=== PATIENT | male | born 1970 | race Caucasian/White ===

== ENCOUNTER 2017-03-14 17:11 | Observation (INO) | payer MEDICARE, OTHER ==
[~2017-03-14] VITALS: Ht 190.5 cm; Wt 109.0 kg
[~2017-03-14 17:11] MED LIST: ABILIF5PT PO; ADAL40PE4 SQ; BUPR8TAB7 SL; FLUO-202 PO; LEVO75TA73 PO; MODA200T6 PO; OMEP-137 PO; OXYC-854 PO; PER PO; POTA20TA94 PO; PRAZ1CAP26 PO; PRED20TA6 PO; PROM-110 PO; RIZA10TA15 PO; RIZA5TAB30 PO; TEST200K; TEST200K IM; TOPI200T61 PO; TRAM-420 PO; TRAZ-156 PO; VENL150C61 PO; VENL75CA58 PO; VENL75TA98 PO; [UNRECOGNIZED DRUG - OTHER] PO
--- NOTE | 2017-03-14 17:25 | ER Report ---
History and Physical Time Seen By MD: 17:24 Hx. of Stated Complaint: PATIENT IS HAVING A CHROHNS FLAREUP HPI/ROS 47-year-old complains of left upper quadrant abdominal pain 48 hours has a history of Crohn's on Humira. previos h/o incisional hernia x 2 Allergies: Coded Allergies: No Known Drug Allergies (Unverified , 12/14/16) Home Meds Active Scripts Potassium Chloride (POTASSIUM CHLORIDE) 20 Meq Tab.er.prt, 20 MEQ PO TIDCF, #90 TAB 1 Refill Prov:TRACEY DEL ANGEL MD 05/26/16 Reported Medications Venlafaxine Hcl (EFFEXOR XR) 75 Mg Cap.er.24h, 75 MG PO QHS 05/24/16 Testosterone Cypionate (Testone Cik) 200 Mg/1 Ml Kit, QWK 12/30/15 Aripiprazole (ABILIFY) 5 Mg Tablet, 10 MG PO QHS, TAB 12/30/15 Levothyroxine Sodium (LEVOTHYROXINE SODIUM) 75 Mcg Tablet, 75 MCG PO QDAY, TAB 12/26/15 Modafinil (MODAFINIL) 200 Mg Tablet, 200 MG PO QDAY 12/02/14 Topiramate (TOPIRAMATE) 200 Mg Tablet, 200 MG PO QHS 12/02/14 Buprenorphine Hcl (BUPRENORPHINE HCL) 8 Mg Tab.subl, 3 TAB SL QDAY 12/02/14 Omeprazole (OMEPRAZOLE) 20 Mg Tablet.dr, 20 MG PO PRN, TAB 12/02/14 Prazosin Hcl (PRAZOSIN HCL) 1 Mg Capsule, 5 MG PO QHS, CAPSULE 12/02/14 Past Medical/Surgical History chrohns disease , appy, altagracia Reviewed Nurses Notes: Yes Old Medical Records Reviewed: Yes Hx Smoking: No (chewing tobacco) Smoking Status: Former Smoker Exposure to Second Hand Smoke?: No Hx Substance Use Disorder: No (RECOVERING PERCOCET) Hx Alcohol Use: No Family History of: HTN Constitutional Vital Sign - Last 24 Hours 03/14/17 03/14/17 03/14/17 03/14/17 17:21 17:21 17:41 17:46 Temp 99.1 Pulse 96 78 79 Resp 20 B/P (MAP) 140/95 140/95 (110) Pulse Ox 98 97 96 O2 Delivery Room Air 03/14/17 03/14/17 03/14/17 03/14/17 19:16 19:30 19:35 20:00 Pulse 77 78 B/P (MAP) 121/76 (91) 123/109 (114) 127/84 (98) Pulse Ox 92 91 03/14/17 03/14/17 03/14/17 20:05 20:33 20:35 Pulse 82 68 B/P (MAP) 138/91 (107) Pulse Ox 92 95 Physical Exam 47-year-old male alert and oriented moderate distress skin is pale warm and dry HEENT has normocephalic/atraumatic tympanic membranes are non-reddened throat is non-reddened mucous membranes are moist neck is supple no JVD heart rate regular no murmurs rubs and gallops lungs clear to auscultation abdomen is tender left upper quadrant mass noted left upper quadrant bowel sounds hyperactive 4 quadrants moves all extremities no peripheral edema Medical Decision Making Data Points Result Diagram: 03/14/17 1824 03/14/17 1824 Laboratory Hematology Test 03/14/17 18:24 03/14/17 20:31 Red Blood Count 5.22 M/uL (4.00-5.60) Mean Corpuscular Volume 85.9 fL (80.0-96.0) Mean Corpuscular Hemoglobin 29.7 pg (26.0-33.0) Mean Corpuscular Hemoglobin Concent 34.6 g/dL (32.0-36.0) Red Cell Distribution Width 12.9 % (11.5-14.5) Mean Platelet Volume 8.4 fL (7.2-11.1) Neutrophils (%) (Auto) 54.3 % (39.4-72.5) Lymphocytes (%) (Auto) 34.9 % (17.6-49.6) Monocytes (%) (Auto) 6.6 % (4.1-12.4) Eosinophils (%) (Auto) 3.4 % (0.4-6.7) Basophils (%) (Auto) 0.8 % (0.3-1.4) Nucleated RBC Relative Count (auto) 0.1 /100WBC Neutrophils # (Auto) 4.4 K/uL (2.0-7.4) Lymphocytes # (Auto) 2.8 K/uL (1.3-3.6) Monocytes # (Auto) 0.5 K/uL (0.3-1.0) Eosinophils # (Auto) 0.3 K/uL (0.0-0.5) Basophils # (Auto) 0.1 K/uL (0.0-0.1) Nucleated RBC Absolute Count (auto) 0.01 K/uL Prothrombin Time 14.0 seconds (12.0-14.4) Prothromb Time International Ratio 1.07 Activated Partial Thromboplast Time 28 seconds (23-35) Sodium Level 143 mmol/L (137-145) Potassium Level 3.3 mmol/L (3.5-5.0) Chloride Level 106 mmol/L (98-107) Carbon Dioxide Level 23 mmol/L (22-30) Blood Urea Nitrogen 11 mg/dl (9-21) Creatinine 1.40 mg/dl (0.66-1.25) Glomerular Filtration Rate Calc 54.3 Random Glucose 88 mg/dl (75-110) Lactate 1.8 mmol/L (0.7-2.1) Calcium Level 8.9 mg/dl (8.4-10.2) Total Bilirubin 0.5 mg/dl (0.2-1.3) Aspartate Amino Transf (AST/SGOT) 23 U/L (0-35) Alanine Aminotransferase (ALT/SGPT) 32 U/L (0-56) Alkaline Phosphatase 78 U/L (0-126) Total Protein 7.5 gm/dl (6.3-8.2) Albumin 4.0 g/dl (3.5-5.0) Amylase Level 103 U/L (0-110) Lipase 98 U/L (23-300) Urine Color Yellow Urine Clarity Clear Urine pH 5.0 pH (4.8-9.5) Urine Specific [place] 1.057 Urine Protein Negative mg/dL (NEGATIVE) Urine Glucose (UA) Negative mg/dL (NEGATIVE) Urine Ketones Negative mg/dL (NEGATIVE) Urine Blood Negative (NEGATIVE) Urine Nitrite Negative (NEGATIVE) Urine Bilirubin Negative (NEGATIVE) Urine Urobilinogen Negative mg/dL (0.2-1.9) Urine Leukocyte Esterase Negative (NEGATIVE) Urine RBC None /HPF (0-2/HPF) Urine WBC 1 /HPF (0-5/HPF) Urine Squamous Epithelial Cells None /LPF (</=FEW) Urine Bacteria Negative /HPF (NONE-FEW) Urine Mucus None /HPF (NONE-FEW) Chemistry Test 03/14/17 18:24 03/14/17 20:31 White Blood Count 8.1 k/uL (4.5-11.0) Red Blood Count 5.22 M/uL (4.00-5.60) Hemoglobin 15.5 g/dL (14.0-18.0) Hematocrit 44.8 % (42.0-52.0) Mean Corpuscular Volume 85.9 fL (80.0-96.0) Mean Corpuscular Hemoglobin 29.7 pg (26.0-33.0) Mean Corpuscular Hemoglobin Concent 34.6 g/dL (32.0-36.0) Red Cell Distribution Width 12.9 % (11.5-14.5) Platelet Count 144 K/uL (150-450) Mean Platelet Volume 8.4 fL (7.2-11.1) Neutrophils (%) (Auto) 54.3 % (39.4-72.5) Lymphocytes (%) (Auto) 34.9 % (17.6-49.6) Monocytes (%) (Auto) 6.6 % (4.1-12.4) Eosinophils (%) (Auto) 3.4 % (0.4-6.7) Basophils (%) (Auto) 0.8 % (0.3-1.4) Nucleated RBC Relative Count (auto) 0.1 /100WBC Neutrophils # (Auto) 4.4 K/uL (2.0-7.4) Lymphocytes # (Auto) 2.8 K/uL (1.3-3.6) Monocytes # (Auto) 0.5 K/uL (0.3-1.0) Eosinophils # (Auto) 0.3 K/uL (0.0-0.5) Basophils # (Auto) 0.1 K/uL (0.0-0.1) Nucleated RBC Absolute Count (auto) 0.01 K/uL Prothrombin Time 14.0 seconds (12.0-14.4) Prothromb Time International Ratio 1.07 Activated Partial Thromboplast Time 28 seconds (23-35) Glomerular Filtration Rate Calc 54.3 Lactate 1.8 mmol/L (0.7-2.1) Calcium Level 8.9 mg/dl (8.4-10.2) Total Bilirubin 0.5 mg/dl (0.2-1.3) Aspartate Amino Transf (AST/SGOT) 23 U/L (0-35) Alanine Aminotransferase (ALT/SGPT) 32 U/L (0-56) Alkaline Phosphatase 78 U/L (0-126) Total Protein 7.5 gm/dl (6.3-8.2) Albumin 4.0 g/dl (3.5-5.0) Amylase Level 103 U/L (0-110) Lipase 98 U/L (23-300) Urine Color Yellow Urine Clarity Clear Urine pH 5.0 pH (4.8-9.5) Urine Specific [place] 1.057 Urine Protein Negative mg/dL (NEGATIVE) Urine Glucose (UA) Negative mg/dL (NEGATIVE) Urine Ketones Negative mg/dL (NEGATIVE) Urine Blood Negative (NEGATIVE) Urine Nitrite Negative (NEGATIVE) Urine Bilirubin Negative (NEGATIVE) Urine Urobilinogen Negative mg/dL (0.2-1.9) Urine Leukocyte Esterase Negative (NEGATIVE) Urine RBC None /HPF (0-2/HPF) Urine WBC 1 /HPF (0-5/HPF) Urine Squamous Epithelial Cells None /LPF (</=FEW) Urine Bacteria Negative /HPF (NONE-FEW) Urine Mucus None /HPF (NONE-FEW) Coagulation Test 03/14/17 18:24 Prothrombin Time 14.0 seconds Prothromb Time International Ratio 1.07 Activated Partial Thromboplast Time 28 seconds Urinalysis Test 03/14/17 20:31 Urine Color Yellow Urine Clarity Clear Urine pH 5.0 pH (4.8-9.5) Urine Specific [place] 1.057 Urine Protein Negative mg/dL (NEGATIVE) Urine Glucose (UA) Negative mg/dL (NEGATIVE) Urine Ketones Negative mg/dL (NEGATIVE) Urine Blood Negative (NEGATIVE) Urine Nitrite Negative (NEGATIVE) Urine Bilirubin Negative (NEGATIVE) Urine Urobilinogen Negative mg/dL (0.2-1.9) Urine Leukocyte Esterase Negative (NEGATIVE) Urine RBC None /HPF (0-2/HPF) Urine WBC 1 /HPF (0-5/HPF) Urine Squamous Epithelial Cells None /LPF (</=FEW) Urine Bacteria Negative /HPF (NONE-FEW) Urine Mucus None /HPF (NONE-FEW) ED Course/Re-evaluation Clinical Indication for ER IV: Hydration ED Course Discussed patient with Dr. walker he will come and see the patient in emergency room. Given normal saline at 125 mL an hour that normal 50 mics 3 doses and Zofran 4 mg IV for nausea promethazine 12.5 mg IV for nausea Re-evaluation Patient last ate or drank at 10 AM had pretzels at that time has been seen by surgery and anesthesia emergency room will be taken for emergent surgery Decision to Disposition Date: Mar 14, 2017 Decision to Disposition Time: 21:24 Depart Departure Latest Vital Signs Vital Signs Date Time Temp Pulse Resp B/P (MAP) Pulse Ox O2 Delivery O2 Flow Rate FiO2 03/14/17 20:35 68 95 03/14/17 20:33 138/91 (107) 03/14/17 17:21 99.1 20 Room Air Impression: Primary Impression: Strangulated incisional hernia Condition: Condition Unchanged Disposition: ADMIT FROM ER TO OR Referrals: CHRISTOPHER THAPA MD (PCP) NOEMI LAURENT Mar 14, 2017 17:25
[2017-03-14] MEDS ORDERED: NS(*) 0.9% 1000 ML BAG 1,000 ML IV ONE (17:28)
[2017-03-14] MEDS ORDERED: ONDANSETRON 4 MG/2 ML VIAL IVP ONE (17:30)
[2017-03-14] MEDS ORDERED: fentaNYL CITR 100 MCG/2 ML AMP IVP ONE ×2 (17:30→20:15)
[2017-03-14] MEDS ORDERED: PANTOPRAZOLE SOD 40 MG IV VIAL IVP ONE (17:30)
[2017-03-14 18:34] LABS: PLATELET COUNT, AUTOMATED 144 K/uL (150-450)
[2017-03-14 18:45] LABS: INR 1.07
[2017-03-14] MEDS ORDERED: IOPAMIDOL 76% 100 ML INFUS BTL 100 ML ONE (19:04)
[2017-03-14] MEDS ORDERED: NS 0.9% 20 ML SDV 60 ML ONE (19:05)
[2017-03-14] MEDS ORDERED: PROMETHAZINE 25 MG/ML 1 ML AMP IVP ONE (19:20)
[2017-03-14] MEDS ORDERED: fentaNYL CITR 100 MCG/2 ML AMP ONE ×4 (20:04→23:26)
--- NOTE | 2017-03-14 20:08 | RADIOLOGY IMAGING REPORT ---
[place] [facility] [place] NAME: Brady Farr : 1970 MR: [id number] V: [id number] EXAM DATE: ORDERING PHYSICIAN: NOEMI LAURENT TECHNOLOGIST: Location: [facility] Patient: Brady Farr : 1970 Visit/Account:[id number] Date of Sevice: 03/14/2017 Study: CT scan of the abdomen and pelvis with intravenous contrast Indication: Abdominal pain Comparison study: April 05, 2016 Contrast used: 100 mL Isovue-370 Technique: Multiple axial images were obtained through the abdomen and pelvis following intravenous a dministration of iodinated contrast. Coronal and sagittal two-dimensional reconstructions were made f rom the original data set. One of the following dose optimization techniques was utilized in the performance of this exam: Autom ated exposure control; adjustment of the mA and/or kV according to the patient's size; or use of an i terative reconstruction technique. Specific details can be referenced in the facility's radiology C T exam operational policy. Findings: The patient is status post surgical repair of an anterior abdominal wall hernia. There is a loop of small bowel present within the anterior left abdominal wall. This is a new finding as compar ed to the previous study. There are several distended loops of small bowel present. This finding is m ost consistent with a partially strangulated loop of small bowel trapped within an anterior abdominal wall hernia. Lung bases: Unremarkable Liver: Liver is of low density, consistent with fatty infiltration. This is unchanged. Spleen: Unremarkable Gallbladder: Surgically absent Stomach: Unremarkable Small bowel: The distal small bowel is nondilated. The proximal small bowel is dilated there appears to be a partially strangulated loop of small bowel trapped within an anterior left abdominal wall her devi. Large bowel: The large bowel is unremarkable in appearance. Pancreas: Unremarkable Adrenal glands: Unremarkable Kidneys: There is a 7 mm stone present within the right kidney collecting system. This is nonobstruct ing. This is increased in size as compared to the previous study. Retroperitoneum: Unremarkable Pelvis: Unremarkable Bony structures: Unremarkable IMPRESSION: Partial small bowel obstruction. The transition point appears to be a partially strangula mary jo loop of small bowel trapped within a left anterior abdominal wall hernia. There is no evidence of pneumatosis of the bowel. Maria Ines Laurent was made aware of these findings at 8:05 PM Report Dictated By: Humberto Harden at 03/14/2017 7:55 PM Report E-Signed By: Humberto Harden at 03/14/2017 8:04 PM [id number]
[2017-03-14] MEDS ORDERED: NORMOSOL R SOLN(*) 1000 ML BAG 1,000 ML IV ONE (20:54)
[2017-03-14] MEDS ORDERED: FAMOTIDINE(*) 20MG/50ML PREMIX 50 ML IVPB ONE (21:00)
[2017-03-14] MEDS ORDERED: ROPIVACAINE 0.2% 20 ML VIAL ONE (21:01)
[2017-03-14] MEDS ORDERED: PROPOFOL EMUL(*) 10MG/ML 20 ML 20 ML ONE (21:07)
[2017-03-14] MEDS ORDERED: fentaNYL CITR 250 MCG/5 ML AMP ONE (21:07)
[2017-03-14] MEDS ORDERED: ROCURONIUM BROM 10 MG/ML 10 ML ONE (21:07)
[2017-03-14] MEDS ORDERED: DEXAMETHASONE SOD 4 MG/ML VIAL ONE (21:07)
[2017-03-14] MEDS ORDERED: SUGAMMADEX SOD 200 MG/2 ML SDV ONE (21:07)
[2017-03-14] MEDS ORDERED: LIDOCAINE MPF 1% 5 ML VIAL ONE (21:07)
[2017-03-14] MEDS ORDERED: NORMOSOL R SOLN(*) 1000 ML BAG 1,000 ML IV PRN (21:08)
--- NOTE | 2017-03-14 21:08 | General Surgery 1 H&P ---
History of Present Illness Chief Complaint abdominal pain History of Present Illness 47 yo male with a history of rheumatoid arthritis, Crohn's disease with multiple abdominal operations including a right colectomy, and 3 ventral hernia repairs the last 2 with mesh who developed a lump just to the left of the lower midline scar yesterday. today it began to cause him pain. it has increased throughout the day. pt seen in ed. cbc normal ct shows incarcerated ventral incisional hernia. History Other Past Surgeries: ventral hernia repair times three. exploratory laps with bowel resections for Crohn's. Home Meds Active Scripts Potassium Chloride (POTASSIUM CHLORIDE) 20 Meq Tab.er.prt, 20 MEQ PO TIDCF, #90 TAB 1 Refill Prov:TRACEY DEL ANGEL MD 05/26/16 Reported Medications Venlafaxine Hcl (EFFEXOR XR) 75 Mg Cap.er.24h, 75 MG PO QHS 05/24/16 Testosterone Cypionate (Testone Cik) 200 Mg/1 Ml Kit, QWK 12/30/15 Aripiprazole (ABILIFY) 5 Mg Tablet, 10 MG PO QHS, TAB 12/30/15 Levothyroxine Sodium (LEVOTHYROXINE SODIUM) 75 Mcg Tablet, 75 MCG PO QDAY, TAB 12/26/15 Modafinil (MODAFINIL) 200 Mg Tablet, 200 MG PO QDAY 12/02/14 Topiramate (TOPIRAMATE) 200 Mg Tablet, 200 MG PO QHS 12/02/14 Buprenorphine Hcl (BUPRENORPHINE HCL) 8 Mg Tab.subl, 3 TAB SL QDAY 12/02/14 Omeprazole (OMEPRAZOLE) 20 Mg Tablet.dr, 20 MG PO PRN, TAB 12/02/14 Prazosin Hcl (PRAZOSIN HCL) 1 Mg Capsule, 5 MG PO QHS, CAPSULE 12/02/14 Allergies: Coded Allergies: No Known Drug Allergies (Unverified , 12/14/16) Family History: FH: arrhythmia BROTHER OR SISTER FH: atrial fibrillation FATHER Review of Systems History of Hypertension?: No History of Diabetes?: No History of DVT?: No Obstructive Sleep Apnea?: No History of Liver Disease?: No History of Kidney Disease?: No Constitutional: No Fever, No Weight Loss, No Weight Gain, No Chills, No Night Sweats, No Other Respiratory: Denies Shortness of Breath, Denies Other Cardiovascular: Denies Chest Pain, Denies Other : Denies Dysuria, Denies Other Exam Vital Signs Date Time Temp Pulse Resp B/P (MAP) Pulse Ox O2 Delivery O2 Flow Rate FiO2 03/14/17 20:35 68 95 03/14/17 20:33 138/91 (107) 03/14/17 17:21 99.1 20 Room Air General Appearance: Alert, Awake Cardiovascular: Regular Rate and Rhythm Respiratory: Clear to Auscultation GI: Other (tender mass just to the left of midline lower part of midline incision. does not reduce.) Medical Decision Making Data Points Result Diagram: 03/14/17182303/14/171823 Assessment and Plan Problems: (1) Incarcerated ventral hernia Assessment & Plan: explore gutierrez and reduce hernia and repair hernia most likely with mesh. Copies to: ARTHUR KOLB MD Central Venous Access Medical Necessity for Access: Hemodynamic Monitoring, IV Access, Medication Administration Venous Thromboembolism Antithrombotics Is Pt On Any Antithrombotics?: No ARTHUR KOLB MD Mar 14, 2017 21:08
[2017-03-14] MEDS ORDERED: ONDANSETRON 4 MG/2 ML VIAL IVP PRN (21:10)
[2017-03-14] MEDS ORDERED: MORPHINE 1 MG/ML 30 ML PCA IV PRN (21:10)
[2017-03-14] MEDS ORDERED: ceFAZolin(*) 2GM/D5W 50ML 50 ML IVPB ONE (21:15)
[2017-03-14] MEDS ORDERED: KETAMINE HCL 200 MG/20 ML MDV ONE (21:32)
--- NOTE | 2017-03-14 21:34 | Post Operative Progress Note ---
Post Operative Progress Note Date: Mar 14, 2017 Time: 22:46 Surgeon: aaron Anesthesia: dr greenfield Pre-Op Diagnosis: incarcerated ventral incisional hernia Post-Op Diagnosis: same Procedure(s): incarcerated veintral incsional herina with mesh 8 cm [place] ARTHUR KOLB MD Mar 14, 2017 21:34
[2017-03-14 23:40] VITALS: BP 126/85
[2017-03-14 23:45] VITALS: BP 122/83
[2017-03-15] VITALS (11 sets, daily range): BP systolic 97–122; BP diastolic 67–87; Ht 190.5 cm; Wt 109.0 kg
[2017-03-15] MEDS ORDERED: KETOROLAC 30 MG/ML VIAL IVP SCH
[2017-03-15] MEDS ORDERED: ACETAMINOPHEN(*)1000 MG/100 ML 100 ML IVPB SCH (01:00)
[2017-03-15] MEDS ORDERED: OMEP-137 PO (05:49)
[2017-03-15] MEDS ORDERED: LEVOTHYROXINE SOD 0.075 MG TAB PO SCH (06:00)
[2017-03-15 06:01] LABS: PLATELET COUNT, AUTOMATED 113 K/uL (150-450)
--- NOTE | 2017-03-15 07:04 | General Surgery Progress Note ---
Subjective Progress Notes Subjective no complaints, pain controlled, no nausea Physical Exam Vital Signs Date Time Temp Pulse Resp B/P (MAP) Pulse Ox O2 Delivery O2 Flow Rate FiO2 03/15/17 05:47 16 95 03/15/17 04:52 98.6 03/15/17 04:00 112/73 (86) Nasal Cannula 2.0 03/15/17 03:00 70 General Appearance: Alert, Awake GI: Soft and Non-Tender Result Diagram: 03/15/17 0533 03/15/1733 Assessment and Plan Problems: (1) Incarcerated ventral hernia Assessment & Plan: explore gutierrez and reduce hernia and repair hernia most likely with mesh. 03/15/17 doing well, try po analgesia. Central Venous Access Medical Necessity for Access: Hemodynamic Monitoring, IV Access, Medication Administration Exam Sepsis Risk: No Definite Risk ARTHUR KOLB MD Mar 15, 2017 07:04
[2017-03-15] MEDS ORDERED: APAP/HYDROCODONE 325/5 TAB PO PRN (07:05)
[2017-03-15] MEDS: POTASSIUM CHL 20 MEQ TABCR PO SCH ×2 (08:54→13:00)
[2017-03-15] MEDS ORDERED: PANTOPRAZOLE SOD 40 MG TABEC PO SCH (09:00)
[2017-03-15] MEDS ORDERED: KETOROLAC TROM 10MG TAB PO SCH (12:00)
[2017-03-15] MEDS ORDERED: HYDR-4309 PO (12:51)
[2017-03-15] MEDS ORDERED: KET10 PO (12:51)
--- NOTE | 2017-03-15 12:52 | Short(Outpt) Discharge Summary ---
Discharge Summary Reason for Hosp/Final Diag: (1) Incarcerated ventral hernia Hospital Course & Plan: explore gutierrez and reduce hernia and repair hernia most likely with mesh. 03/15/17 doing well, try po analgesia. 03/15/17 doing well, home today Departure Discharge to: Home Discharge Instructions Home Meds Active Scripts Hydrocodone Bit/Acetaminophen (NORCO 5-325 TABLET) 1 Each Tablet, 1 EACH PO Q4H Y for PAIN, #30 TAB Prov:ARTHUR KOLB MD 03/15/17 Ketorolac Tromethamine (KETOROLAC TROMETHAMINE) 10 Mg Tab, 10 MG PO Q6H, #16 TAB Prov:ARTHUR KOLB MD 03/15/17 Potassium Chloride (POTASSIUM CHLORIDE) 20 Meq Tab.er.prt, 20 MEQ PO TIDCF, #90 TAB 1 Refill Prov:TRACEY DEL ANGEL MD 05/26/16 Reported Medications Omeprazole (OMEPRAZOLE) 20 Mg Tablet.dr, 20 MG PO QDAY, TAB 03/15/17 Venlafaxine Hcl (EFFEXOR XR) 75 Mg Cap.er.24h, 75 MG PO QHS 05/24/16 Testosterone Cypionate (Testone Cik) 200 Mg/1 Ml Kit, QWK 12/30/15 Aripiprazole (ABILIFY) 5 Mg Tablet, 10 MG PO QHS, TAB 12/30/15 Levothyroxine Sodium (LEVOTHYROXINE SODIUM) 75 Mcg Tablet, 75 MCG PO QDAY, TAB 12/26/15 Modafinil (MODAFINIL) 200 Mg Tablet, 200 MG PO QDAY 12/02/14 Topiramate (TOPIRAMATE) 200 Mg Tablet, 200 MG PO QHS 12/02/14 Buprenorphine Hcl (BUPRENORPHINE HCL) 8 Mg Tab.subl, 3 TAB SL QDAY 12/02/14 Prazosin Hcl (PRAZOSIN HCL) 1 Mg Capsule, 5 MG PO QHS, CAPSULE 12/02/14 Discontinued Reported Medications Omeprazole (OMEPRAZOLE) 20 Mg Tablet.dr, 20 MG PO PRN, TAB 12/02/14 Diet: Regular Activity: No Heavy Lifting Special Instructions: ice to incsion for 48 hours remove bandage and shower tomorrow to see me in one week, call [phone] for apt ARTHUR KOLB MD Mar 15, 2017 12:52
--- NOTE | 2017-03-15 20:40 | OPERATIVE REPORT 1 ---
EVENT DATE: March 14, 2017 SURGEON: Kishore Campos MD ANESTHESIOLOGIST: Cristo Rodriguez MD ANESTHESIA: General. PREOPERATIVE DIAGNOSIS Incarcerated ventral/incisional hernia. POSTOPERATIVE DIAGNOSIS Incarcerated ventral/incisional hernia. PROCEDURE PERFORMED Incarcerated ventral/incisional hernia repair with mesh. DESCRIPTION OF PROCEDURE The patient was placed in the supine position and given general anesthetic. His abdomen was prepped and draped in a sterile fashion. The lump was located to the left side of the previous midline scar just above the umbilicus on the left, and it was a readily palpable lump when the patient was anesthetized. The patient has had multiple midline operations and had a previous mesh placed. We decided that this hernia was most likely exiting lateral to the mesh that was previously placed, and so we made an incision right over the top of it transversely and carried it down through the skin and subcutaneous tissue. We then came upon a piece of mesh that was an onlay mesh, and the hernia was underneath this piece of mesh, so we carefully incised this with a scalpel and then a scissors transversely and entered the hernia space which was below the onlay mesh and above the level of the muscle. There was a hernia sac present there. This was dissected free, and the hernia had reduced during our manipulation of this area. As we dissected the bowel free, we visualized small bowel, and there was no evidence of any compromise, although we did not attempt to run the small bowel because of intra-abdominal adhesions. The hernia defect was not quite two fingerbreadths in width, a little narrower than that, and we dissected underneath that into the abdominal cavity, and we came upon the mesh that was placed intra-abdominally. This piece of mesh had folded over on itself , and we had to dissect some of this free in order to make sense of what was going on. The hernia was just inferior and lateral to this folded piece of mesh. We unfolded it as best we could and took out several of the lana that were placed. We could then reach a finger inside, and this was covering the midline medially superiorly. Because we had a small hernia defect, I did not feel that removing this mesh completely was in order. However, we had to remove a portion of it because it was folded over and in the way of our hernia repair, so this was cut back with a scissors. At this point, we placed an 8 cm Ventrio mesh [place] with arms on it and laid it into position. It laid nice and flat in the intra-abdominal cavity. We then cut the arms off, sutured those back superiorly and inferiorly with 0 Vicryl. We then sutured the mesh in place by closing the defect with interrupted 0 Vicryl that incorporated the mesh and brought it together and obliterated hernia. At this point, we injected 20 mL of 0.2% ropivacaine into the muscle and subcutaneous tissue. We then closed the onlay mesh that was over the top of this mesh with a running 0 Prolene. While sewing this mesh together, we did reach down and get a piece of the mesh that we had placed in order to obliterate this space. We then injected another 20 mL in the subcutaneous tissue and muscle. The subcutaneous tissue was reapproximated with 2-0 chromic. The skin was closed with running 4- 0 Maxon. Steri-Strips and an Airstrip were placed. The patient tolerated the procedure well. No apparent complications. Estimated blood loss was negligible. NADYA
[2017-03-15] MEDS ORDERED: ARIPiprazole 10 MG TAB PO SCH (21:00)
[2017-03-15] MEDS ORDERED: VENLAFAXINE XR 75 MG CAPCR PO SCH (21:00)
[2017-03-15] MEDS ORDERED: PRAZOSIN HCL 5 MG CAP PO SCH (21:00)
== END 2017-03-15 12:50 | disposition home or self-care (01) ==
LOC: ER 17:43 → OR 20:40 → MED 23:32
PROVIDERS: ADMIT Surgery; ATTEND Surgery
DX: K43.0 Incisional hernia with obstruction, without gangrene (principal)
CPT/HCPCS: 36415; 49561; 49568; 74177; 81001; 82150; 83605; 83690; 85025; 85610; 85730; 88300; 96361; 96374; 96375; 99285; A9270; C9113; G0378; J0131; J1100; J2001; J2270; J2405; J2550; J2704; J2795; J3010; J3490; J7030; J7050; Q9967; 82040; 82247; 82310; 82374; 82435; 82565; 82947; 84075; 84132; 84155; 84295; 84450; 84460; 84520; J0690

== ENCOUNTER → 2017-10-26 | Outpatient (CLI) | payer MEDICARE, OTHER ==
[2017-03-15 11:19] VITALS: BMI 30.0
[~2017-10-26] MED LIST changes: +HYDR-4309 PO; +KET10 PO; -TRAZ-156 PO; +TRAZ50TA34 PO
== END ==
LOC: LAB 10:36
PROVIDERS: ATTEND Nurse Practitioner Psychiatric/Mental Health
DX: R53.83 Other fatigue (principal); Z79.899 Other long term (current) drug therapy; E29.1 Testicular hypofunction

== ENCOUNTER → 2017-10-28 | Outpatient (CLI) | payer MEDICARE, OTHER ==
[2017-03-15 11:19] VITALS: BMI 30.0
== END ==
LOC: LAB 09:13
PROVIDERS: ATTEND Nurse Practitioner Psychiatric/Mental Health
DX: R53.83 Other fatigue (principal); Z79.899 Other long term (current) drug therapy; E29.1 Testicular hypofunction

== ENCOUNTER 2018-01-09 04:45 | Emergency (ER) | payer MEDICARE, OTHER ==
[2017-03-15 11:19] VITALS: Wt 111.1 kg
[~2018-01-09 04:45] MED LIST changes: -HYDR-4309 PO; +HYDR-653 PO
--- NOTE | 2018-01-09 04:49 | ER Report ---
History and Physical Time Seen By MD: 04:49 HPI/ROS CHIEF COMPLAINT: Right knee pain and swelling HISTORY OF PRESENT ILLNESS: 48-year-old male the history of gout. He notes right knee swelling for several days. He recalls no specific trauma. He notes pain, swelling primarily on the medial aspect along the patella and the joint line. Patient's been trying to treat it at home with heat and ice without improvement. He missed work yesterday, which prompted him to come in to the ER today. The work in a few hours. REVIEW OF SYSTEMS: Respiratory: No cough, no dyspnea. Cardiovascular: No chest pain, no palpitations. Gastrointestinal: No vomiting, no abdominal pain. Musculoskeletal: As above Allergies: Coded Allergies: No Known Drug Allergies (Unverified , 12/14/16) Home Meds Active Scripts Potassium Chloride (POTASSIUM CHLORIDE) 20 Meq Tab.er.prt, 20 MEQ PO TIDCF, #90 TAB 1 Refill Prov:TRACEY DEL ANGEL MD 05/26/16 Reported Medications Trazodone Hcl (TRAZODONE HCL) 50 Mg Tablet, 50 MG PO QHS 01/09/18 Omeprazole (OMEPRAZOLE) 20 Mg Tablet.dr, 20 MG PO QDAY, TAB 03/15/17 Venlafaxine Hcl (EFFEXOR XR) 75 Mg Cap.er.24h, 75 MG PO QHS 05/24/16 Testosterone Cypionate (Testone Cik) 200 Mg/1 Ml Kit, QWK 12/30/15 Aripiprazole (ABILIFY) 5 Mg Tablet, 10 MG PO QHS, TAB 12/30/15 Levothyroxine Sodium (LEVOTHYROXINE SODIUM) 75 Mcg Tablet, 75 MCG PO QDAY, TAB 12/26/15 Modafinil (MODAFINIL) 200 Mg Tablet, 200 MG PO QDAY 12/02/14 Topiramate (TOPIRAMATE) 200 Mg Tablet, 200 MG PO QHS 12/02/14 Buprenorphine Hcl (BUPRENORPHINE HCL) 8 Mg Tab.subl, 3 TAB SL QDAY 12/02/14 Prazosin Hcl (PRAZOSIN HCL) 1 Mg Capsule, 5 MG PO QHS, CAPSULE 12/02/14 Discontinued Scripts Prednisone (PREDNISONE) 20 Mg Tablet, 20 MG PO QDAY for reduce gout inflammation, #11 TAB 2 by mouth daily for 3 days then 1 by mouth daily for 3 days, then 1/2 for 4 days Prov:KIERSTEN OLIVO DO 01/09/18 Hydrocodone Bit/Acetaminophen (NORCO 5-325 TABLET) 1 Each Tablet, 1 EACH PO Q4H PRN for PAIN, #30 TAB Prov:ARTHUR KOLB MD 03/15/17 Ketorolac Tromethamine (KETOROLAC TROMETHAMINE) 10 Mg Tab, 10 MG PO Q6H, #16 TAB Prov:ARTHUR KOLB MD 03/15/17 Past Medical/Surgical History History of migraines, history of cluster headaches, hypertension, chron's, GERD, rheumatid arthritis, "vision problems"-glasses but does not wear, hypothyroidism, PTSD, depression/anxiety L4-L5 discectomy, drop foot left side numbness knee down, numerous surgeries in abdomen, 6 bowel surgeries, knee and back, appendectomy, cholecystectomy, hiatal hernia repair Reviewed Nurses Notes: Yes Old Medical Records Reviewed: Yes Hx Smoking: No (chewing tobacco) Smoking Status: Former Smoker Exposure to Second Hand Smoke?: No Hx Substance Use Disorder: No (RECOVERING PERCOCET) Hx Alcohol Use: No Constitutional Vital Sign - Last 24 Hours 01/09/18 04:52 Temp 97.9 Pulse 89 Resp 16 B/P (MAP) 129/94 Pulse Ox 95 O2 Delivery Room Air Physical Exam General appearance: Alert no distress. Respiratory: Chest is non tender, lungs are clear to auscultation. Cardiac: Regular rate and rhythm Extremities: Examination of the right knee reveals soft tissue swelling along the medial joint line. Along the margin of the patella. There is tenderness. Patient has decreased range of motion. Ligaments are intact on stressing. DIFFERENTIAL DIAGNOSIS: After history and physical exam differential diagnosis was considered for gout, arthritis, knee sprain, bursitis, internal derangement Medical Decision Making ED Course/Re-evaluation ED Course Patient was admitted to an examination room. H&P was done. The differential diagnosis was considered. On clinical examination. Patient has a swollen right knee. He recalls no specific traumatic injury. With spontaneous pain is suspicious for gout. She'll be treated with prednisone. He is advised some ibuprofen alongside of it. He is advised to take all medications with food. He's advised to follow-up with primary care if unimproved in 3-5 days. He is given a note for off work 2 days. Decision to Disposition Date: Jan 09, 2018 Decision to Disposition Time: 04:56 Depart Departure Latest Vital Signs Vital Signs Date Time Temp Pulse Resp B/P (MAP) Pulse Ox O2 Delivery O2 Flow Rate FiO2 01/09/18 04:52 97.9 89 16 129/94 95 Room Air Impression: Primary Impression: Gout of right knee Condition: Improved Disposition: HOME OR SELF-CARE Patient Instructions: Gout (ED) Additional Instructions: Take ibuprofen 200 mg 3 tablets 3 times a day with food Take all medication with food Take plenty of fluids All up with primary care if unimproved in 3-5 days Problem Qualifiers Primary Impression: Gout of right knee Gout etiology: unspecified cause Chronicity: acute Qualified Codes: M10.9 - Gout, unspecified KIERSTEN OLIVO DO Jan 09, 2018 04:49
[2018-01-09 04:52] VITALS: BP 129/94
[2018-01-09] MEDS ORDERED: PRED20TA6 PO (04:57)
[2018-01-09] MEDS ORDERED: predniSONE 20 MG TAB PO ONE (05:00)
[2018-01-09] MEDS ORDERED: TRAZ50TA34 PO (05:08)
[2018-01-09] MEDS ORDERED: KETOROLAC 60 MG/2 ML VIAL IM ONE (05:15)
== END 2018-01-09 05:53 | disposition home or self-care (01) ==
LOC: ER 05:08
DX: M10.9 Gout, unspecified (principal)
CPT/HCPCS: 96372; 99283; J1885; J7512

== ENCOUNTER 2018-02-17 09:32 | Emergency (ER) | payer MEDICARE, OTHER ==
[2017-03-15 11:19] VITALS: Wt 113.4 kg
--- NOTE | 2018-02-17 09:34 | ER Report ---
History and Physical Time Seen By MD: 09:33 HPI/ROS CHIEF COMPLAINT: Headache HISTORY OF PRESENT ILLNESS: Patient is a 48-year-old male here with complaints of 3 days of migraine. Patient reports taking ibuprofen last dose of which was approximately 1 hour prior to arrival without relief of symptoms. Patient reports that this is a typical distribution for his headache located primarily behind the right eye with photosensitivity, change of vision in the right eye. Denies fevers, chills, recent illness. Patient is neurovascularly intact with no focal neurological findings on examination. Denies recent history of trauma. REVIEW OF SYSTEMS: Constitutional: No fever, no chills. Eyes: No discharge, + right visual changes, + photosensitivity ENT: No sore throat. Cardiovascular: No chest pain, no palpitations. Respiratory: No cough, no shortness of breath. Gastrointestinal: No abdominal pain, no vomiting. Genitourinary: No hematuria. Musculoskeletal: No back pain. Skin: No rashes. Neurological: headache. Allergies: Coded Allergies: No Known Drug Allergies (Unverified , 12/14/16) Home Meds Active Scripts Tramadol Hcl (TRAMADOL HCL) 50 Mg Tablet, 50 MG PO Q6H PRN for PAIN, #6 TAB 0 Refills Prov:SHAYY ROGERS DO 02/17/18 Potassium Chloride (POTASSIUM CHLORIDE) 20 Meq Tab.er.prt, 20 MEQ PO TIDCF, #90 TAB 1 Refill Prov:TRACEY DEL ANGEL MD 05/26/16 Reported Medications Trazodone Hcl (TRAZODONE HCL) 50 Mg Tablet, 150 MG PO QHS for Sleep 01/09/18 Omeprazole (OMEPRAZOLE) 20 Mg Tablet.dr, 20 MG PO QDAY, TAB 03/15/17 Venlafaxine Hcl (EFFEXOR XR) 75 Mg Cap.er.24h, 75 MG PO QHS 05/24/16 Testosterone Cypionate (Testone Cik) 200 Mg/1 Ml Kit, QWK 12/30/15 Aripiprazole (ABILIFY) 5 Mg Tablet, 10 MG PO QHS, TAB 12/30/15 Levothyroxine Sodium (LEVOTHYROXINE SODIUM) 75 Mcg Tablet, 75 MCG PO QDAY, TAB 12/26/15 Modafinil (MODAFINIL) 200 Mg Tablet, 200 MG PO QDAY 12/02/14 Buprenorphine Hcl (BUPRENORPHINE HCL) 8 Mg Tab.subl, 3 TAB SL QDAY 12/02/14 Prazosin Hcl (PRAZOSIN HCL) 1 Mg Capsule, 5 MG PO QHS, CAPSULE 12/02/14 Discontinued Reported Medications Topiramate (TOPIRAMATE) 200 Mg Tablet, 200 MG PO QHS 12/02/14 Hx Smoking: No (chewing tobacco) Smoking Status: Former Smoker Exposure to Second Hand Smoke?: No Hx Substance Use Disorder: No (RECOVERING PERCOCET) Hx Alcohol Use: No Constitutional Vital Sign - Last 24 Hours 02/17/18 02/17/18 02/17/18 02/17/18 09:32 09:37 09:38 10:32 Temp 98.5 Pulse ??? 88 88 Resp 16 B/P (MAP) 141/93 (109) 141/83 Pulse Ox 90 90 O2 Delivery Room Air 02/17/18 02/17/18 02/17/18 02/17/18 10:33 11:00 11:02 11:30 Pulse 82 81 B/P (MAP) 116/67 (83) 115/66 (82) 111/66 (81) Pulse Ox 88 87 02/17/18 12:00 Pulse 71 B/P (MAP) 110/67 (81) Pulse Ox 87 Physical Exam General Appearance: The patient is alert, has no immediate need for airway protection and no signs of toxicity. Mild distress due to pain Eyes: Pupils equal and round no pallor or injection. ENT, Mouth: Mucous membranes are moist. Respiratory: There are no retractions, lungs are clear to auscultation. Cardiovascular: Regular rate and rhythm. Gastrointestinal: Abdomen is soft and non tender, no masses, bowel sounds normal. Neurological: No focal neuro deficits, NV intact in all extremities Skin: Warm and dry, no rashes. Musculoskeletal: Neck is supple non tender. Extremities are nontender, nonswollen and have full range of motion. DIFFERENTIAL DIAGNOSIS: After history and physical exam differential diagnosis was considered for headache including but not limited to subarachnoid hemorr parul, migraine headache, tension headache and infectious causes such as meningitis, pharyngitis and sinusitis. Medical Decision Making ED Course/Re-evaluation ED Course Patient is a 48-year-old male with a history of migraines here with a 3 day history of persistent migraines in spite of taking ibuprofen. Patient reports that his current symptoms are typical for his migraine headaches. There are no focal neurological deficits on exam. IV access was established and the patient was given Toradol, Decadron, magnesium, Benadryl, IV fluid bolus, tramadol, Reglan. Patient had moderate relief of symptoms. Patient was stable at time of discharge. Return precautions provided. Prescription for tramadol given for outpatient treatment. Decision to Disposition Date: Feb 17, 2018 Decision to Disposition Time: 11:56 Depart Departure Latest Vital Signs Vital Signs Date Time Temp Pulse Resp B/P (MAP) Pulse Ox O2 Delivery O2 Flow Rate FiO2 02/17/18 12:00 71 110/67 (81) 87 02/17/18 09:38 98.5 16 Room Air Impression: Primary Impression: Migraine headache Condition: Improved Disposition: HOME OR SELF-CARE New Scripts Tramadol Hcl (TRAMADOL HCL) 50 Mg Tablet 50 MG PO Q6H PRN for PAIN, #6 TAB 0 Refills Prov: SHAYY ROGERS DO 02/17/18 Patient Instructions: Migraine Headache (GEN) Additional Instructions: Please drink plenty of water. Today you were given IV fluids, Toradol, magnesium, Benadryl, Reglan, Decadron. You were also given tramadol. You may ta ke 1 tramadol every 6-8 hours as needed for headache. Please consider following up with a headache specialist in neurology as there are medications that may improve and decrease episodes of recurrence. Please return promptly if you develop fevers, worsening headache, inability to keep down food or fluids. SHAYY ROGERS DO Feb 17, 2018 09:34
[2018-02-17] MEDS ORDERED: METOCLOPRAMIDE 10 MG/2 ML SDV IVP ONE (09:45)
[2018-02-17] MEDS ORDERED: NS(*) 0.9% 1000 ML BAG 1,000 ML IV ONE (09:45)
[2018-02-17] MEDS ORDERED: diphenhydrAMINE 50 MG/ML VIAL IVP ONE (09:45)
[2018-02-17] MEDS ORDERED: KETOROLAC 30 MG/ML VIAL IVP ONE (09:45)
[2018-02-17] MEDS ORDERED: DEXAMETHASONE SOD PHOS 10MG/ML IVP ONE (09:45)
[2018-02-17] MEDS ORDERED: MAGNESIUM SUL/D5W* 1 GM/100 ML 100 ML IVPB ONE (10:50)
[2018-02-17] MEDS ORDERED: traMADol 50 MG TAB PO ONE (11:45)
[2018-02-17] MEDS ORDERED: TRAM-420 PO (11:59)
[2018-02-17 12:00] VITALS: BP 110/67
== END 2018-02-17 12:20 | disposition home or self-care (01) ==
LOC: ER 09:36
DX: G43.909 Migraine, unspecified, not intractable, without status migrainosus (principal)
CPT/HCPCS: 96365; 96375; 99284; A9270; J1100; J1200; J1885; J2765; J3475; J7030

== ENCOUNTER 2018-03-21 10:05 | Emergency (ER) | payer MEDICARE, OTHER ==
[2017-03-15 11:19] VITALS: Wt 111.1 kg
[2018-03-21 10:24] VITALS: BP 119/82
--- NOTE | 2018-03-21 10:27 | ER Report ---
History and Physical Time Seen By MD: 10:50 Hx. of Stated Complaint: nausea since yesterday. feels clamy, abdomen distended. pt has crohns, ran out of his marcial HPI/ROS CHIEF COMPLAINT: Abdominal pain HISTORY OF PRESENT ILLNESS: Patient is a 48-year-old male with history of Crohn's disease status post multiple surgeries and right hemicolectomy also history of ventral hernia repair 4 most recently in [place] [address] Campos. Patient states that yesterday he began having watery diarrhea approximate 7-8 stools but denies blood or mucus. Denies fevers or chills. Reports generalized periumbilical abdominal pain that is 8 out of 10 in intensity. Patient reports nausea without vomiting. He denies fevers or chills. Patient had been on Humira but has been off for the last 6 months as he has not gotten his prescription refilled. She denies dysuria or scrotal or testicular pain. REVIEW OF SYSTEMS: Constitutional: No fever, no chills. Eyes: No discharge. ENT: No sore throat. Cardiovascular: No chest pain, no palpitations. Respiratory: No cough, no shortness of breath. Gastrointestinal: Abdominal pain, nausea, diarrhea Genitourinary: No hematuria. Musculoskeletal: No back pain. Skin: No rashes. Neurological: No headache. Allergies: Coded Allergies: No Known Drug Allergies (Unverified , 12/14/16) Home Meds Active Scripts Hydrocodone Bit/Acetaminophen (HYDROCODON-ACETAMINOPHEN 5-325) 1 Each Tablet, 1 EACH PO Q4H PRN for PAIN, #6 TAB 0 Refills Prov:BALJIT ÁLVAREZ MD 03/21/18 Promethazine Hcl (PROMETHAZINE HCL) 25 Mg Tablet, 25 MG PO Q8H for Nausea, #15 TAB 0 Refills Prov:BALJIT ÁLVAREZ MD 03/21/18 Dicyclomine Hcl (DICYCLOMINE HCL) 20 Mg Tablet, 20 MG PO QID, #40 TAB 0 Refills Prov:BALJIT ÁLVAREZ MD 03/21/18 Tramadol Hcl (TRAMADOL HCL) 50 Mg Tablet, 50 MG PO Q6H PRN for PAIN, #6 TAB 0 Refills Prov:SHAYY ROGERS DO 02/17/18 Potassium Chloride (POTASSIUM CHLORIDE) 20 Meq Tab.er.prt, 20 MEQ PO TIDCF, #90 TAB 1 Refill Prov:TRACEY DEL ANGEL MD 05/26/16 Reported Medications Trazodone Hcl (TRAZODONE HCL) 50 Mg Tablet, 150 MG PO QHS for Sleep 01/09/18 Omeprazole (OMEPRAZOLE) 20 Mg Tablet.dr, 20 MG PO QDAY, TAB 03/15/17 Venlafaxine Hcl (EFFEXOR XR) 75 Mg Cap.er.24h, 75 MG PO QHS 05/24/16 Testosterone Cypionate (Testone Cik) 200 Mg/1 Ml Kit, QWK 12/30/15 Aripiprazole (ABILIFY) 5 Mg Tablet, 10 MG PO QHS, TAB 12/30/15 Levothyroxine Sodium (LEVOTHYROXINE SODIUM) 75 Mcg Tablet, 75 MCG PO QDAY, TAB 12/26/15 Modafinil (MODAFINIL) 200 Mg Tablet, 200 MG PO QDAY 12/02/14 Buprenorphine Hcl (BUPRENORPHINE HCL) 8 Mg Tab.subl, 3 TAB SL QDAY 12/02/14 Prazosin Hcl (PRAZOSIN HCL) 1 Mg Capsule, 5 MG PO QHS, CAPSULE 12/02/14 Past Medical/Surgical History Past medical history for rheumatoid arthritis, Crohn's disease with multiple abdominal operations including a right colectomy, history of ventral hernia repairs. Recent admission in March 2017 for incarcerated hernia repair. Hx Smoking: No (chewing tobacco) Smoking Status: Former Smoker Exposure to Second Hand Smoke?: No Hx Substance Use Disorder: No (RECOVERING PERCOCET) Hx Alcohol Use: No Constitutional Vital Sign - Last 24 Hours 03/21/18 10:24 Temp 97.5 Pulse 103 Resp 16 B/P (MAP) 119/82 Pulse Ox 91 O2 Delivery Room Air Physical Exam General/Constitutional: Patient is awake, alert, nontoxic and in no acute respiratory distress. Head: Normocephalic and atraumatic. Eyes: Conjunctival clear, Pupils are equal and reactive to light. Extraocular muscles are intact and symmetrical. Sclera are clear and anicteric. Neck: Supple, no adenopathy. Cardiovascular: Heart is regular rate and rhythm without audible murmurs, rubs or gallops. Pulmonary: Lungs are clear to auscultation bilaterally. There are no wheezes, rales, or rhonchi. Chest rise is symmetrical Abdomen: Hyperactive bowel sounds, diffuse tenderness without rebound tenderness noted. Extremities: No gross deformities, No peripheral cyanosis. Able to move all 4 extremities. Neuro: Alert and oriented X3, Skin: No rashes, skin is warm dry and well perfused. Medical Decision Making Data Points Result Diagram: 03/21/18 1050 03/21/18 1050 Laboratory Hematology Test 03/21/18 10:35 03/21/18 10:50 Urine Color Janee Urine Clarity Cloudy Urine pH 5.0 pH (4.8-9.5) Urine Specific [place] 1.026 Urine Protein 30 mg/dL (NEGATIVE) Urine Glucose (UA) Negative mg/dL (NEGATIVE) Urine Ketones Trace mg/dL (NEGATIVE) Urine Blood Negative (NEGATIVE) Urine Nitrite Negative (NEGATIVE) Urine Bilirubin Small (NEGATIVE) Urine Urobilinogen Negative mg/dL (0.2-1.9) Urine Leukocyte Esterase Negative (NEGATIVE) Urine RBC None /HPF (0-2/HPF) Urine WBC 8 /HPF (0-5/HPF) Urine Squamous Epithelial Cells Few /LPF (</=FEW) Urine Bacteria Few /HPF (NONE-FEW) Urine Hyaline Casts Many /LPF (NONE-FEW) Urine Mucus Few /HPF (NONE-FEW) Red Blood Count 5.58 M/uL (4.00-5.60) Mean Corpuscular Volume 86.1 fL (80.0-96.0) Mean Corpuscular Hemoglobin 28.6 pg (26.0-33.0) Mean Corpuscular Hemoglobin Concent 33.2 g/dL (32.0-36.0) Red Cell Distribution Width 13.9 % (11.5-14.5) Mean Platelet Volume 8.0 fL (7.2-11.1) Neutrophils (%) (Auto) 83.8 % (39.4-72.5) Lymphocytes (%) (Auto) 7.9 % (17.6-49.6) Monocytes (%) (Auto) 6.3 % (4.1-12.4) Eosinophils (%) (Auto) 1.5 % (0.4-6.7) Basophils (%) (Auto) 0.5 % (0.3-1.4) Nucleated RBC Relative Count (auto) 0.1 /100WBC Neutrophils # (Auto) 10.1 K/uL (2.0-7.4) Lymphocytes # (Auto) 1.0 K/uL (1.3-3.6) Monocytes # (Auto) 0.8 K/uL (0.3-1.0) Eosinophils # (Auto) 0.2 K/uL (0.0-0.5) Basophils # (Auto) 0.1 K/uL (0.0-0.1) Nucleated RBC Absolute Count (auto) 0.01 K/uL Sodium Level 141 mmol/L (137-145) Potassium Level 3.3 mmol/L (3.5-5.0) Chloride Level 110 mmol/L (98-107) Carbon Dioxide Level 18 mmol/L (22-30) Blood Urea Nitrogen 11 mg/dl (9-21) Creatinine 1.50 mg/dl (0.66-1.25) Glomerular Filtration Rate Calc 49.9 Random Glucose 141 mg/dl (75-110) Calcium Level 9.2 mg/dl (8.4-10.2) Total Bilirubin 0.6 mg/dl (0.2-1.3) Aspartate Amino Transf (AST/SGOT) 24 U/L (0-35) Alanine Aminotransferase (ALT/SGPT) 16 U/L (0-56) Alkaline Phosphatase 95 U/L (0-126) Total Protein 8.3 g/dl (6.3-8.2) Albumin 4.7 g/dl (3.5-5.0) Amylase Level 96 U/L (0-110) Lipase 158 U/L (23-300) Helicobacter pylori IgG Antibody Negative (NEGATIVE) Chemistry Test 03/21/18 10:35 03/21/18 10:50 Urine Color Janee Urine Clarity Cloudy Urine pH 5.0 pH (4.8-9.5) Urine Specific [place] 1.026 Urine Protein 30 mg/dL (NEGATIVE) Urine Glucose (UA) Negative mg/dL (NEGATIVE) Urine Ketones Trace mg/dL (NEGATIVE) Urine Blood Negative (NEGATIVE) Urine Nitrite Negative (NEGATIVE) Urine Bilirubin Small (NEGATIVE) Urine Urobilinogen Negative mg/dL (0.2-1.9) Urine Leukocyte Esterase Negative (NEGATIVE) Urine RBC None /HPF (0-2/HPF) Urine WBC 8 /HPF (0-5/HPF) Urine Squamous Epithelial Cells Few /LPF (</=FEW) Urine Bacteria Few /HPF (NONE-FEW) Urine Hyaline Casts Many /LPF (NONE-FEW) Urine Mucus Few /HPF (NONE-FEW) White Blood Count 12.0 k/uL (4.5-11.0) Red Blood Count 5.58 M/uL (4.00-5.60) Hemoglobin 16.0 g/dL (14.0-18.0) Hematocrit 48.0 % (42.0-52.0) Mean Corpuscular Volume 86.1 fL (80.0-96.0) Mean Corpuscular Hemoglobin 28.6 pg (26.0-33.0) Mean Corpuscular Hemoglobin Concent 33.2 g/dL (32.0-36.0) Red Cell Distribution Width 13.9 % (11.5-14.5) Platelet Count 160 K/uL (150-450) Mean Platelet Volume 8.0 fL (7.2-11.1) Neutrophils (%) (Auto) 83.8 % (39.4-72.5) Lymphocytes (%) (Auto) 7.9 % (17.6-49.6) Monocytes (%) (Auto) 6.3 % (4.1-12.4) Eosinophils (%) (Auto) 1.5 % (0.4-6.7) Basophils (%) (Auto) 0.5 % (0.3-1.4) Nucleated RBC Relative Count (auto) 0.1 /100WBC Neutrophils # (Auto) 10.1 K/uL (2.0-7.4) Lymphocytes # (Auto) 1.0 K/uL (1.3-3.6) Monocytes # (Auto) 0.8 K/uL (0.3-1.0) Eosinophils # (Auto) 0.2 K/uL (0.0-0.5) Basophils # (Auto) 0.1 K/uL (0.0-0.1) Nucleated RBC Absolute Count (auto) 0.01 K/uL Glomerular Filtration Rate Calc 49.9 Calcium Level 9.2 mg/dl (8.4-10.2) Total Bilirubin 0.6 mg/dl (0.2-1.3) Aspartate Amino Transf (AST/SGOT) 24 U/L (0-35) Alanine Aminotransferase (ALT/SGPT) 16 U/L (0-56) Alkaline Phosphatase 95 U/L (0-126) Total Protein 8.3 g/dl (6.3-8.2) Albumin 4.7 g/dl (3.5-5.0) Amylase Level 96 U/L (0-110) Lipase 158 U/L (23-300) Helicobacter pylori IgG Antibody Negative (NEGATIVE) Urinalysis Test 03/21/18 10:35 Urine Color Janee Urine Clarity Cloudy Urine pH 5.0 pH (4.8-9.5) Urine Specific [place] 1.026 Urine Protein 30 mg/dL (NEGATIVE) Urine Glucose (UA) Negative mg/dL (NEGATIVE) Urine Ketones Trace mg/dL (NEGATIVE) Urine Blood Negative (NEGATIVE) Urine Nitrite Negative (NEGATIVE) Urine Bilirubin Small (NEGATIVE) Urine Urobilinogen Negative mg/dL (0.2-1.9) Urine Leukocyte Esterase Negative (NEGATIVE) Urine RBC None /HPF (0-2/HPF) Urine WBC 8 /HPF (0-5/HPF) Urine Squamous Epithelial Cells Few /LPF (</=FEW) Urine Bacteria Few /HPF (NONE-FEW) Urine Hyaline Casts Many /LPF (NONE-FEW) Urine Mucus Few /HPF (NONE-FEW) EKG/Imaging Imaging FACILITY: [facility] PATIENT NAME: Brady Farr : 1970 MR: [id number] V: [id number] EXAM DATE: [id number] ORDERING PHYSICIAN: BALJIT ÁLVAREZ TECHNOLOGIST: Location: [facility] [place] Patient: Brady Farr : 1970 Visit/Account:[id number] Date of Sevice: 03/21/2018 EXAMINATION: CT abdomen with IV contrast CT pelvis with IV contrast HISTORY: Left upper quadrant pain. Crohn's disease. TECHNIQUE: Spiral scan was through the abdomen and pelvis during injection of nonionic iodinated intravenous contrast. Sagittal and coronal reformatted imag es are also submitted. One of the following dose optimization techniques was utilized in the perfo rmance of this exam: Automated exposure control; adjustment of the mA and/or kV according to the patient's size; or use of an iterative reconstruction technique. Specific details can be referenced in the facility's radiology CT exam operational policy. CONTRAST: 96 mL of IV Isovue 300 COMPARISON: CT abdomen and pelvis dated 03/14/2017. FINDINGS: Lower chest: Negative. Liver / biliary: Cholecystectomy. Hepatic steatosis. Otherwise negative. Pancreas: Negative. Spleen: Negative. Adrenal glands: Negative. Kidneys: Stable 5 mm nonobstructing stone in the inferior right kidney. Otherwise negative. Pelvic structures: Negative. Bowel: Partial colectomy. No obstruction or bowel wall thickening. Peritoneum / retroperitoneum / mesenteries: Negative. Vessels: Negative. Lymph nodes: Negative. Musculoskeletal / Body wall: Multilevel degenerative disc disease and facet hypertrophy in the thoracolumbar spine. Mild to moderate bilateral hip osteoarthritis. Ventral hernia repair. No aggressive osseous lesions. IMPRESSION: No acute abnormality in the abdomen or pelvis. Report Dictated By: Ismael Lutz MD at 03/21/2018 11:55 AM Report E-Signed By: Ismael Lutz MD at 03/21/2018 12:06 PM WSN:LAVERN ED Course/Re-evaluation Clinical Indication for ER IV: Hydration, IV Access ED Course 03/21/2018 11:00:13 am plan at this time will be abdominal workup including a CT scan with IV contrast. We'll give IV pain medications, IV fluids and antinausea medicines. Re-evaluation 03/21/2018 11:45:40 am with persistent pain and nausea will dose with IV fentanyl and repeat 12.5 mg of Phenergan. 03/21/2018 12:29:29 pm patient with improvement of abdominal symptoms. CT scan shows no acute findings. Plan will be discharge home 03/21/2018 12:47:02 pm , by pharmacy with concerns of opiate prescription as patient was recently treated for opiate addiction. Plan at this time will be to cancel hydrocodone patient encouraged to take Bentyl and Phenergan as directed prescribed short course of tramadol dispensing 6 tablets. Decision to Disposition Date: Mar 21, 2018 Decision to Disposition Time: 12:29 Depart Departure Latest Vital Signs Vital Signs Date Time Temp Pulse Resp B/P (MAP) Pulse Ox O2 Delivery O2 Flow Rate FiO2 03/21/18 10:24 97.5 103 16 119/82 91 Room Air Impression: Primary Impression: Diarrhea Additional Impression: Abdominal pain Condition: Improved Disposition: HOME OR SELF-CARE New Scripts Promethazine Hcl (PROMETHAZINE HCL) 25 Mg Tablet 25 MG PO Q8H for Nausea, #15 TAB 0 Refills Prov: BALJIT ÁLVAREZ MD 03/21/18 Dicyclomine Hcl (DICYCLOMINE HCL) 20 Mg Tablet 20 MG PO QID, #40 TAB 0 Refills Prov: BALJIT ÁLVAREZ MD 03/21/18 Departure Forms: ER Transition Record, Medications Reconciliation, Off Work/School Form, School or Work Release?: Work Number of days to be released: 2 Patient Portal Information Patient Instructions: Abdominal Pain (ED), Acute Diarrhea (ED) Problem Qualifiers Primary Impression: Diarrhea Diarrhea type: unspecified type Qualified Codes: R19.7 - Diarrhea, unspecified Additional Impression: Abdominal pain Abdominal location: generalized Qualified Codes: R10.84 - Generalized abdominal pain BALJIT ÁLVAREZ MD Mar 21, 2018 10:27
[2018-03-21] MEDS ORDERED: NS(*) 0.9% 1000 ML BAG 1,000 ML IV ONE (10:31)
[2018-03-21] MEDS ORDERED: ONDANSETRON 4 MG/2 ML VIAL IVP ONE (10:35)
[2018-03-21] MEDS ORDERED: HYDROMORPHONE HCL 1 MG/ML SYRINGE IVP ONE (10:35)
[2018-03-21] MEDS ORDERED: IOPAMIDOL 61% 100 ML INFUS BTL 100 ML ONE (10:49)
[2018-03-21] MEDS ORDERED: PROMETHAZINE 25 MG/ML 1 ML AMP IVP ONE (10:55)
[2018-03-21 11:00] LABS: PLATELET COUNT, AUTOMATED 160 K/uL (150-450)
[2018-03-21] MEDS ORDERED: PROMETHAZINE 50 MG/ML 1 ML AMP IVP ONE (11:45)
[2018-03-21] MEDS ORDERED: fentaNYL CITR 100 MCG/2 ML AMP IVP ONE (11:45)
--- NOTE | 2018-03-21 12:10 | RADIOLOGY IMAGING REPORT ---
FACILITY: [facility] PATIENT NAME: Brady Farr : 1970 MR: [id number] V: [id number] EXAM DATE: ORDERING PHYSICIAN: BALJIT ÁLVAREZ TECHNOLOGIST: Location: [facility] Patient: Brady Farr : 1970 Visit/Account:[id number] Date of Sevice: 03/21/2018 EXAMINATION: CT abdomen with IV contrast CT pelvis with IV contrast HISTORY: Left upper quadrant pain. Crohn's disease. TECHNIQUE: Spiral scan was through the abdomen and pelvis during injection of nonionic iodinated in travenous contrast. Sagittal and coronal reformatted images are also submitted. One of the following dose optimization techniques was utilized in the performance of this exam: Autom ated exposure control; adjustment of the mA and/or kV according to the patient's size; or use of an i terative reconstruction technique. Specific details can be referenced in the facility's radiology C T exam operational policy. CONTRAST: 96 mL of IV Isovue 300 COMPARISON: CT abdomen and pelvis dated 03/14/2017. FINDINGS: Lower chest: Negative. Liver / biliary: Cholecystectomy. Hepatic steatosis. Otherwise negative. Pancreas: Negative. Spleen: Negative. Adrenal glands: Negative. Kidneys: Stable 5 mm nonobstructing stone in the inferior right kidney. Otherwise negative. Pelvic structures: Negative. Bowel: Partial colectomy. No obstruction or bowel wall thickening. Peritoneum / retroperitoneum / mesenteries: Negative. Vessels: Negative. Lymph nodes: Negative. Musculoskeletal / Body wall: Multilevel degenerative disc disease and facet hypertrophy in the thorac olumbar spine. Mild to moderate bilateral hip osteoarthritis. Ventral hernia repair. No aggressive osseous lesions. IMPRESSION: No acute abnormality in the abdomen or pelvis. Report Dictated By: Ismael Lutz MD at 03/21/2018 11:55 AM Report E-Signed By: Ismael Lutz MD at 03/21/2018 12:06 PM WSN:[email or web address]
[2018-03-21] MEDS ORDERED: LOR5/325 PO (12:32)
[2018-03-21] MEDS ORDERED: DICY20TA70 PO (12:32)
[2018-03-21] MEDS ORDERED: PROM-110 PO (12:32)
[2018-03-21] MEDS ORDERED: TRAM-420 PO (12:44)
== END 2018-03-21 12:45 | disposition home or self-care (01) ==
LOC: ER 10:41
DX: R19.7 Diarrhea, unspecified (principal); R10.84 Generalized abdominal pain
CPT/HCPCS: 74177; 81001; 82150; 83690; 85025; 86677; 96361; 96374; 96375; 96376; 99284; J1170; J2550; J3010; J7030; Q9967; 82040; 82247; 82310; 82374; 82435; 82565; 82947; 84075; 84132; 84155; 84295; 84450; 84460; 84520

== ENCOUNTER → 2018-07-08 | Outpatient (REF) | payer MEDICARE, OTHER ==
[2017-03-15 11:19] VITALS: BMI 30.0
[~2018-07-08] MED LIST changes: +DICY20TA70 PO; +LOR5/325 PO
[2018-07-08 11:17] LABS: PLATELET COUNT, AUTOMATED 145 K/uL (150-450)
== END ==
LOC: ZZSTITCHES 11:03
PROVIDERS: ATTEND Physician Assistant
DX: R21 Rash and other nonspecific skin eruption (principal); R23.3 Spontaneous ecchymoses
CPT/HCPCS: 85025

== ENCOUNTER 2018-07-22 19:28 | Emergency (ER) | payer MEDICARE, OTHER ==
[2017-03-15 11:19] VITALS: Wt 113.4 kg
[~2018-07-22 19:28] MED LIST changes: -TRAZ50TA34 PO; +TRAZ50TA52 PO
--- NOTE | 2018-07-22 19:46 | ER Report ---
History and Physical Time Seen By MD: 19:45 Hx. of Stated Complaint: Patient has chrons dx, states feels like a flare up. Patient having left upper quadrant pain, nausea and diarrhea. HPI/ROS CHIEF COMPLAINT: Abdominal pain, diarrhea HISTORY OF PRESENT ILLNESS: 48-year-old male presents ambulatory to the ER complaining of a history of Crohn's disease. He is status post hemicolectomy. And numerous surgeries. He was last seen here in the ER in March of this year. He had a CAT scan. Patient now notes diarrhea for several days. He's had severe abdominal pain and cramping. He now is vomiting is unable to keep anything down. Patient denies fever or chills. He notes no blood in emesis or diarrhea. He notes no mucous. REVIEW OF SYSTEMS: Respiratory: No cough, no dyspnea. Cardiovascular: No chest pain, no palpitations. Gastrointestinal: As above Musculoskeletal: No back pain. Allergies: Coded Allergies: No Known Drug Allergies (Unverified , 12/14/16) Home Meds Active Scripts Promethazine Hcl (PROMETHAZINE HCL) 25 Mg Tablet, 25 MG PO Q4H PRN for AIME SEA/VOMITING, #14 TAB Prov:KIERSTEN OLIVO DO 07/22/18 Prednisone (PREDNISONE) 20 Mg Tablet, 40 MG PO QDAY for reduce, bowel inflammation, #14 Prov:KIERSTEN OLIVO DO 07/22/18 Hydrocodone Bit/Acetaminophen (HYDROCODON-ACETAMINOPHEN 5-325) 1 Each Tablet, 1 EACH PO Q4-6H PRN for PAIN, #12 TAKE ONE TABLET BY MOUTH EVERY 4-6 HOURS NEEDED FOR PAIN Prov:KIERSTEN OLIVO DO 07/22/18 Ondansetron Hcl (ZOFRAN) 4 Mg Tablet, 4 MG PO Q6H PRN for NAUSEA/VOMITING, #10 Prov:KIERSTEN OLIVO DO 07/22/18 Metronidazole (FLAGYL) 500 Mg Tablet, 500 MG PO BID for infection, #14 TAB Prov:KIERSTEN OLIVO DO 07/22/18 Ciprofloxacin Hcl 500 Mg Tab (CIPRO 500 MG TAB) 500 Mg Tablet, 500 MG PO BID for infection, #14 Prov:KIERSTEN OLIVO DO 07/22/18 Tramadol Hcl (TRAMADOL HCL) 50 Mg Tablet, 50 MG PO Q6H PRN for PAIN, #6 TAB 0 Refills Prov:BALJIT ÁLVAREZ MD 03/21/18 Promethazine Hcl (PROMETHAZINE HCL) 25 Mg Tablet, 25 MG PO Q8H for Nausea, #15 TAB 0 Refills Prov:BALJIT ÁLVAREZ MD 03/21/18 Dicyclomine Hcl (DICYCLOMINE HCL) 20 Mg Tablet, 20 MG PO QID, #40 TAB 0 Refills Prov:BALJIT ÁLVAREZ MD 03/21/18 Tramadol Hcl (TRAMADOL HCL) 50 Mg Tablet, 50 MG PO Q6H PRN for PAIN, #6 TAB 0 Refills Prov:SHAYY ROGERS DO 02/17/18 Potassium Chloride (POTASSIUM CHLORIDE) 20 Meq Tab.er.prt, 20 MEQ PO TIDCF, #90 TAB 1 Refill Prov:TRACEY DEL ANGEL MD 05/26/16 Reported Medications Trazodone Hcl (TRAZODONE HCL) 50 Mg Tablet, 150 MG PO QHS for Sleep 01/09/18 Omeprazole (OMEPRAZOLE) 20 Mg Tablet.dr, 20 MG PO QDAY, TAB 03/15/17 Venlafaxine Hcl (EFFEXOR XR) 75 Mg Cap.er.24h, 75 MG PO QHS 05/24/16 Testosterone Cypionate (Testone Cik) 200 Mg/1 Ml Kit, QWK 12/30/15 Aripiprazole (ABILIFY) 5 Mg Tablet, 10 MG PO QHS, TAB 12/30/15 Levothyroxine Sodium (LEVOTHYROXINE SODIUM) 75 Mcg Tablet, 75 MCG PO QDAY, TAB 12/26/15 Modafinil (MODAFINIL) 200 Mg Tablet, 200 MG PO QDAY 12/02/14 Buprenorphine Hcl (BUPRENORPHINE HCL) 8 Mg Tab.subl, 3 TAB SL QDAY 12/02/14 Prazosin Hcl (PRAZOSIN HCL) 1 Mg Capsule, 5 MG PO QHS, CAPSULE 12/02/14 Past Medical/Surgical History Past medical history for rheumatoid arthritis, Crohn's disease with multiple abdominal operations including a right colectomy, history of ventral hernia repairs. Recent admission in March 2017 for incarcerated hernia repair. Reviewed Nurses Notes: Yes Old Medical Records Reviewed: Yes Hx Smoking: No (chewing tobacco) Smoking Status: Former Smoker Exposure to Second Hand Smoke?: No Hx Substance Use Disorder: No (RECOVERING PERCOCET) Hx Alcohol Use: No Constitutional Vital Sign - Last 24 Hours 07/22/18 07/22/18 07/22/18 07/22/18 19:41 19:43 19:58 20:00 Temp 98.4 Pulse 84 89 86 Resp 16 B/P (MAP) 128/89 114/81 (92) Pulse Ox 92 95 90 O2 Delivery Room Air 07/22/18 07/22/18 07/22/18 07/22/18 20:13 20:43 20:58 21:00 Pulse 85 90 82 B/P (MAP) 118/79 (92) Pulse Ox 91 90 90 07/22/18 07/22/18 07/22/18 07/22/18 21:05 21:20 21:35 21:50 Pulse 82 89 80 79 Pulse Ox 89 91 94 91 07/22/18 07/22/18 07/22/18 07/22/18 21:55 22:00 22:10 22:25 Pulse 74 75 70 B/P (MAP) ???/??? (1665) Pulse Ox 91 93 91 07/22/18 22:30 B/P (MAP) ???/??? (1665) Intake and Output 07/22/18 07/22/18 07/23/18 15:01 23:01 07:01 Intake Total 1000 ml Balance 1000 ml Physical Exam Vital signs stable, afebrile, pulse ox normal General Appearance: The patient is alert, has no immediate need for airway protection and no current signs of toxicity., Pale appearing, skin warm and dry Eyes: Pupils equal and round no injection. Respiratory: Chest is non tender, lungs are clear to auscultation. Cardiac: regular rate and rhythm Gastrointestinal: Abdomen is soft, mild distention, mild diffuse tenderness, no masses, bowel sounds normal. Musculoskeletal: Neck: Neck is supple and non tender. Extremities have full range of motion and are non tender. Skin: No rashes or lesions. DIFFERENTIAL DIAGNOSIS: After history and physical exam differential diagnosis was considered for abdominal pain including but not limited to appendicitis, cholecystitis, Crohn's disease flare, gastritis and urinary tract infection. Medical Decision Making Data Points Result Diagram: 07/22/18202707/22/182027 Laboratory Hematology Test 07/22/18 20:16 6/15/19 20:28 Urine Color Yellow Urine Clarity Slightly-cloudy Urine pH 6.0 pH (4.8-9.5) Urine Specific Clear 1.030 Urine Protein Negative mg/dL (NEGATIVE) Urine Glucose (UA) Negative mg/dL (NEGATIVE) Urine Ketones Negative mg/dL (NEGATIVE) Urine Blood Negative (NEGATIVE) Urine Nitrite Negative (NEGATIVE) Urine Bilirubin Negative (NEGATIVE) Urine Urobilinogen Negative mg/dL (0.2-1.9) Urine Leukocyte Esterase Negative (NEGATIVE) Urine RBC <1 /HPF (0-2/HPF) Urine WBC 1 /HPF (0-5/HPF) Urine Squamous Epithelial Cells None /LPF (</=FEW) Urine Transitional Epithelial Cells Few /LPF (NONE-FEW) Urine Bacteria Negative /HPF (NONE-FEW) Urine Hyaline Casts Few /LPF (NONE-FEW) Urine Mucus Few /HPF (NONE-FEW) Urine Yeast (Budding) Few /HPF Red Blood Count 5.04 M/uL (4.00-5.60) Mean Corpuscular Volume 84.2 fL (80.0-96.0) Mean Corpuscular Hemoglobin 28.9 pg (26.0-33.0) Mean Corpuscular Hemoglobin Concent 34.3 g/dL (32.0-36.0) Red Cell Distribution Width 14.5 % (11.5-14.5) Mean Platelet Volume 7.6 fL (7.2-11.1) Neutrophils (%) (Auto) 63.3 % (39.4-72.5) Lymphocytes (%) (Auto) 25.4 % (17.6-49.6) Monocytes (%) (Auto) 6.7 % (4.1-12.4) Eosinophils (%) (Auto) 3.9 % (0.4-6.7) Basophils (%) (Auto) 0.7 % (0.3-1.4) Nucleated RBC Relative Count (auto) 0.3 /100WBC Neutrophils # (Auto) 5.3 K/uL (2.0-7.4) Lymphocytes # (Auto) 2.1 K/uL (1.3-3.6) Monocytes # (Auto) 0.6 K/uL (0.3-1.0) Eosinophils # (Auto) 0.3 K/uL (0.0-0.5) Basophils # (Auto) 0.1 K/uL (0.0-0.1) Nucleated RBC Absolute Count (auto) 0.02 K/uL Erythrocyte Sedimentation Rate 22 mm/HOUR (0-15) Sodium Level 141 mmol/L (137-145) Potassium Level 3.8 mmol/L (3.5-5.0) Chloride Level 110 mmol/L (98-107) Carbon Dioxide Level 17 mmol/L (22-30) Blood Urea Nitrogen 13 mg/dl (9-21) Creatinine 1.30 mg/dl (0.66-1.25) Glomerular Filtration Rate Calc 58.9 Random Glucose 104 mg/dl (75-110) Lactate 1.4 mmol/L (0.7-2.1) Calcium Level 8.8 mg/dl (8.4-10.2) Total Bilirubin 0.6 mg/dl (0.2-1.3) Aspartate Amino Transf (AST/SGOT) 22 U/L (0-35) Alanine Aminotransferase (ALT/SGPT) 23 U/L (0-56) Alkaline Phosphatase 112 U/L (0-126) C-Reactive Protein < 0.5 mg/dl (<1.0) Total Protein 7.6 g/dl (6.3-8.2) Albumin 4.2 g/dl (3.5-5.0) Amylase Level 121 U/L (0-110) Lipase 309 U/L (23-300) Chemistry Test 07/22/18 20:16 07/22/18 20:28 Urine Color Yellow Urine Clarity Slightly-cloudy Urine pH 6.0 pH (4.8-9.5) Urine Specific Clear 1.030 Urine Protein Negative mg/dL (NEGATIVE) Urine Glucose (UA) Negative mg/dL (NEGATIVE) Urine Ketones Negative mg/dL (NEGATIVE) Urine Blood Negative (NEGATIVE) Urine Nitrite Negative (NEGATIVE) Urine Bilirubin Negative (NEGATIVE) Urine Urobilinogen Negative mg/dL (0.2-1.9) Urine Leukocyte Esterase Negative (NEGATIVE) Urine RBC <1 /HPF (0-2/HPF) Urine WBC 1 /HPF (0-5/HPF) Urine Squamous Epithelial Cells None /LPF (</=FEW) Urine Transitional Epithelial Cells Few /LPF (NONE-FEW) Urine Bacteria Negative /HPF (NONE-FEW) Urine Hyaline Casts Few /LPF (NONE-FEW) Urine Mucus Few /HPF (NONE-FEW) Urine Yeast (Budding) Few /HPF White Blood Count 8.4 k/uL (4.5-11.0) Red Blood Count 5.04 M/uL (4.00-5.60) Hemoglobin 14.6 g/dL (14.0-18.0) Hematocrit 42.4 % (42.0-52.0) Mean Corpuscular Volume 84.2 fL (80.0-96.0) Mean Corpuscular Hemoglobin 28.9 pg (26.0-33.0) Mean Corpuscular Hemoglobin Concent 34.3 g/dL (32.0-36.0) Red Cell Distribution Width 14.5 % (11.5-14.5) Platelet Count 176 K/uL (150-450) Mean Platelet Volume 7.6 fL (7.2-11.1) Neutrophils (%) (Auto) 63.3 % (39.4-72.5) Lymphocytes (%) (Auto) 25.4 % (17.6-49.6) Monocytes (%) (Auto) 6.7 % (4.1-12.4) Eosinophils (%) (Auto) 3.9 % (0.4-6.7) Basophils (%) (Auto) 0.7 % (0.3-1.4) Nucleated RBC Relative Count (auto) 0.3 /100WBC Neutrophils # (Auto) 5.3 K/uL (2.0-7.4) Lymphocytes # (Auto) 2.1 K/uL (1.3-3.6) Monocytes # (Auto) 0.6 K/uL (0.3-1.0) Eosinophils # (Auto) 0.3 K/uL (0.0-0.5) Basophils # (Auto) 0.1 K/uL (0.0-0.1) Nucleated RBC Absolute Count (auto) 0.02 K/uL Erythrocyte Sedimentation Rate 22 mm/HOUR (0-15) Glomerular Filtration Rate Calc 58.9 Lactate 1.4 mmol/L (0.7-2.1) Calcium Level 8.8 mg/dl (8.4-10.2) Total Bilirubin 0.6 mg/dl (0.2-1.3) Aspartate Amino Transf (AST/SGOT) 22 U/L (0-35) Alanine Aminotransferase (ALT/SGPT) 23 U/L (0-56) Alkaline Phosphatase 112 U/L (0-126) C-Reactive Protein < 0.5 mg/dl (<1.0) Total Protein 7.6 g/dl (6.3-8.2) Albumin 4.2 g/dl (3.5-5.0) Amylase Level 121 U/L (0-110) Lipase 309 U/L (23-300) Urinalysis Test 07/22/18 20:16 Urine Color Yellow Urine Clarity Slightly-cloudy Urine pH 6.0 pH (4.8-9.5) Urine Specific Clear 1.030 Urine Protein Negative mg/dL (NEGATIVE) Urine Glucose (UA) Negative mg/dL (NEGATIVE) Urine Ketones Negative mg/dL (NEGATIVE) Urine Blood Negative (NEGATIVE) Urine Nitrite Negative (NEGATIVE) Urine Bilirubin Negative (NEGATIVE) Urine Urobilinogen Negative mg/dL (0.2-1.9) Urine Leukocyte Esterase Negative (NEGATIVE) Urine RBC <1 /HPF (0-2/HPF) Urine WBC 1 /HPF (0-5/HPF) Urine Squamous Epithelial Cells None /LPF (</=FEW) Urine Transitional Epithelial Cells Few /LPF (NONE-FEW) Urine Bacteria Negative /HPF (NONE-FEW) Urine Hyaline Casts Few /LPF (NONE-FEW) Urine Mucus Few /HPF (NONE-FEW) Urine Yeast (Budding) Few /HPF EKG/Imaging Imaging Results: CT scan of the abdomen and pelvis with IV contrast was obtained. The results of the study are EXAMINATION: CT abdomen and pelvis with IV contrast HISTORY: Abdominal pain. History of Crohn's disease. TECHNIQUE: Axial CT images of the abdomen and pelvis were obtained with IV contrast, with coronal and sagittal 2D reconstructed images. One of the following dose optimization techniques was utilized in the performance of this exam: Automated exposure control; adjustment of the mA and/or kV according to the patient's size; or use of an iterative recons truction technique. Specific details can be referenced in the facility's radiology CT exam operational policy. Contrast: 75 mL of IV Isovue-370. COMPARISON: 03/21/2018. FINDINGS: Liver: Fatty infiltration of the liver. No focal liver lesion. Gallbladder and bile ducts: Cholecystectomy. No bile duct dilatation. Spleen: Negative. Pancreas: Negative. Adrenal glands: Negative. Kidneys: Nonobstructing 6 mm calculus in the lower pole of the right kidney. No left-sided urinary calculi. No hydronephrosis. The kidneys enhance normally. Bowel and peritoneum: Prior bowel surgery. There has been an ileocolonic resection with a patent ileocolonic anastomosis in the upper right abdomen. There is suggestion of mild diffuse colonic wall thickening extending from the distal transverse colon to the rectum, with a small amount of liquid stool present throughout the colon. CT appearance may be compatible with a nonspecific colitis. Small bowel loops are unremarkable by CT. No bowel obstruction. No free fluid or free intraperitoneal air. Pelvic structures: Negative. Lymph node assessment: Negative. Vessels: Negative. Musculoskeletal: Negative. Body wall: Prior ventral hernia repair with mesh along the anterior abdominal wall. Lung bases: Negative. IMPRESSION: 1. There has been a prior ileocolonic resection with a patent ileocolonic anastomosis in the upper right abdomen. 2. Mild colonic wall thickening extending from the distal transverse colon to the rectum, with a small volume of liquid stool throughout the colon. Appearance may be compatible with a nonspecific colitis. 3. No other acute intra-abdominal findings. 4. Stable nonobstructing right renal calculus. 5. Cholecystectomy. The study was read by the radiologist. I viewed the images myself on the PACS system. ED Course/Re-evaluation Clinical Indication for ER IV: Hydration, IV Access ED Course Patient was admitted to an examination room. H&P was done. The differential diagnoses was considered. Patient with acute abdominal distention, vomiting and diarrhea. He has a known history of Crohn's. He is status post hemicolectomy. Patient was treated with IV fluid hydration, Zofran and fentanyl. A repeat CT scan was ordered. The CAT scan shows gross colitis, please see report. His auditory studies were relatively unremarkable. His lipase and amylase were elevated suggesting a very mild case of an cryptitis as well. Patient be treated for colitis with Flagyl, Cipro, prednisone. Patient's given Zofran, Phenergan and Lortab for pain relief. He is advised to get established Dr. Ziegler GI. Information was provided for Dr. Ziegler's clinic Decision to Disposition Date: Jul 22, 2018 Decision to Disposition Time: 21:51 Depart Departure Latest Vital Signs Vital Signs Date Time Temp Pulse Resp B/P (MAP) Pulse Ox O2 Delivery O2 Flow Rate FiO2 07/22/18 22:30 ???/??? (1665) 07/22/18 22:25 70 91 07/22/18 19:41 98.4 16 Room Air Impression: Primary Impression: Colitis Additional Impression: History of Crohn's disease Condition: Improved Disposition: HOME OR SELF-CARE New Scripts Promethazine Hcl (PROMETHAZINE HCL) 25 Mg Tablet 25 MG PO Q4H PRN for NAUSEA/VOMITING, #14 TAB Prov: KIERSTEN OLIVO DO 07/22/18 Prednisone (PREDNISONE) 20 Mg Tablet 40 MG PO QDAY for reduce, bowel inflammation, #14 Prov: KIERSTEN OLIVO DO 07/22/18 Hydrocodone Bit/Acetaminophen (HYDROCODON-ACETAMINOPHEN 5-325) 1 Each Tablet 1 EACH PO Q4-6H PRN for PAIN, #12 TAKE ONE TABLET BY MOUTH EVERY 4-6 HOURS NEEDED FOR PAIN Prov: KIERSTEN OLIVO DO 07/22/18 Ondansetron Hcl (ZOFRAN) 4 Mg Tablet 4 MG PO Q6H PRN for NAUSEA/VOMITING, #10 Prov: KIERSTEN OLIVO DO 07/22/18 Metronidazole (FLAGYL) 500 Mg Tablet 500 MG PO BID for infection, #14 TAB Prov: KIERSTEN OLIVO DO 07/22/18 Ciprofloxacin Hcl 500 Mg Tab (CIPRO 500 MG TAB) 500 Mg Tablet 500 MG PO BID for infection, #14 Prov: KIERSTEN OLIVO DO 07/22/18 Patient Instructions: Colitis (ED) Additional Instructions: Follow clear liquid diet for 48 hours and advance to Lonnie diet, bananas, rice, applesauce and toast Follow-up with primary care if unimproved in 3-5 days Follow-up with Dr. Toney YOON to get established. Problem Qualifiers KIERSTEN OLIVO Cheryl DO Jul 22, 2018 19:46
[2018-07-22] MEDS ORDERED: NS(*) 0.9% 1000 ML BAG 1,000 ML IV ONE (19:51)
[2018-07-22] MEDS ORDERED: ONDANSETRON 4 MG/2 ML VIAL IVP ONE (19:55)
[2018-07-22] MEDS ORDERED: methylPREDNIS SUCC 125 MG/2ML IVP ONE (19:55)
[2018-07-22] MEDS ORDERED: fentaNYL CITR 100 MCG/2 ML AMP IVP ONE (19:55)
[2018-07-22] MEDS ORDERED: PROMETHAZINE 25 MG/ML 1 ML AMP IVP ONE (20:35)
[2018-07-22 20:44] LABS: PLATELET COUNT, AUTOMATED 176 K/uL (150-450)
[2018-07-22] MEDS ORDERED: IOPAMIDOL 76% 100 ML INFUS BTL 100 ML ONE (21:14)
--- NOTE | 2018-07-22 21:48 | RADIOLOGY IMAGING REPORT ---
FACILITY: [facility] PATIENT NAME: Brady Farr : 1970 MR: [id number] V: [id number] EXAM DATE: ORDERING PHYSICIAN: KIERSTEN OLIVO TECHNOLOGIST: Location: [facility] Patient: Brady Farr : 1970 Visit/Account:[id number] Date of Sevice: 07/22/2018 EXAMINATION: CT abdomen and pelvis with IV contrast HISTORY: Abdominal pain. History of Crohn's disease. TECHNIQUE: Axial CT images of the abdomen and pelvis were obtained with IV contrast, with coronal a nd sagittal 2D reconstructed images. One of the following dose optimization techniques was utilized in the performance of this exam: Autom ated exposure control; adjustment of the mA and/or kV according to the patient's size; or use of an i terative reconstruction technique. Specific details can be referenced in the facility's radiology C T exam operational policy. Contrast: 75 mL of IV Isovue-370. COMPARISON: 03/21/2018. FINDINGS: Liver: Fatty infiltration of the liver. No focal liver lesion. Gallbladder and bile ducts: Cholecystectomy. No bile duct dilatation. Spleen: Negative. Pancreas: Negative. Adrenal glands: Negative. Kidneys: Nonobstructing 6 mm calculus in the lower pole of the right kidney. No left-sided urinary c alculi. No hydronephrosis. The kidneys enhance normally. Bowel and peritoneum: Prior bowel surgery. There has been an ileocolonic resection with a patent ile ocolonic anastomosis in the upper right abdomen. There is suggestion of mild diffuse colonic wall thi ckening extending from the distal transverse colon to the rectum, with a small amount of liquid stool present throughout the colon. CT appearance may be compatible with a nonspecific colitis. Small brenda l loops are unremarkable by CT. No bowel obstruction. No free fluid or free intraperitoneal air. Pelvic structures: Negative. Lymph node assessment: Negative. Vessels: Negative. Musculoskeletal: Negative. Body wall: Prior ventral hernia repair with mesh along the anterior abdominal wall. Lung bases: Negative. IMPRESSION: 1. There has been a prior ileocolonic resection with a patent ileocolonic anastomosis in the upper ri ght abdomen. 2. Mild colonic wall thickening extending from the distal transverse colon to the rectum, with a smal l volume of liquid stool throughout the colon. Appearance may be compatible with a nonspecific coliti s. 3. No other acute intra-abdominal findings. 4. Stable nonobstructing right renal calculus. 5. Cholecystectomy. Report Dictated By: Mick Luis MD at 07/22/2018 9:37 PM Report E-Signed By: Mick Luis MD at 07/22/2018 9:43 PM WSN:[id number]
[2018-07-22] MEDS ORDERED: CIPROFLOXACIN 500 MG TAB PO ONE (21:55)
[2018-07-22] MEDS ORDERED: ONDANSETRON 4 MG ODT TH SL ONE (21:55)
[2018-07-22] MEDS ORDERED: ACET/HYDROC 5/325MG TH ER ONLY 2 TAB/BOTTLE PO ONE (21:55)
[2018-07-22] MEDS ORDERED: METRONIDAZOLE 500 MG TABLET PO ONE (21:55)
[2018-07-22] MEDS ORDERED: KETOROLAC 30 MG/ML VIAL IVP ONE (21:55)
[2018-07-22] MEDS ORDERED: HYDROMORPHONE HCL 1 MG/ML SYRINGE IVP ONE (21:55)
[2018-07-22] MEDS ORDERED: CIPR-344 PO (21:57)
[2018-07-22] MEDS ORDERED: LOR5/325 PO (21:57)
[2018-07-22] MEDS ORDERED: METR-1 PO (21:57)
[2018-07-22] MEDS ORDERED: ONDA4TAB97 PO (21:57)
[2018-07-22] MEDS ORDERED: PRED20TA6 PO (21:59)
[2018-07-22] MEDS ORDERED: PROMETHAZINE HCL 25 MG TAB TH 2 TAB/BOTTLE PO ONE (22:05)
[2018-07-22] MEDS ORDERED: PROM-110 PO (22:07)
== END 2018-07-22 22:49 | disposition home or self-care (01) ==
LOC: ER 20:02
DX: K52.9 Noninfective gastroenteritis and colitis, unspecified (principal); K50.90 Crohn's disease, unspecified, without complications
CPT/HCPCS: 74177; 81001; 82150; 83605; 83690; 85025; 85651; 86140; 96361; 96374; 96375; 99284; A9270; J1170; J1885; J2550; J2930; J3010; J7030; Q9967; 82040; 82247; 82310; 82374; 82435; 82565; 82947; 84075; 84132; 84155; 84295; 84450; 84460; 84520

== ENCOUNTER 2018-07-23 14:35 | Emergency (ER) | payer MEDICARE, OTHER ==
[2017-03-15 11:19] VITALS: Wt 113.5 kg
[~2018-07-23 14:35] MED LIST changes: +CIPR-344 PO; +METR-1 PO; +ONDA4TAB97 PO
[2018-07-23] MEDS ORDERED: CIPROFLOXACIN 500 MG TAB PO ONE (14:55)
[2018-07-23] MEDS ORDERED: APAP/HYDROCODONE 325/5 TAB PO ONE (14:55)
[2018-07-23] MEDS ORDERED: METRONIDAZOLE 500 MG TABLET PO ONE (14:55)
--- NOTE | 2018-07-23 14:57 | ER Report ---
History and Physical Time Seen By MD: 14:52 HPI/ROS CHIEF COMPLAINT: Abdominal pain HISTORY OF PRESENT ILLNESS: 40 atrial no history of colitis returns emergency department less than 24 hours from his last visit patient has CT scan baseline blood work diagnosed with infectious colitis was prescribed antibiotics and pain medication patient state he was able to take his pain medication but could not get his antibiotics filled. However when I asked him he said he is not taking his pain medications either orders antibodies due to financial reasons is asking for a dose of each. Patient states his pain is relatively unchanged from yesterday and he is concerned he was unable to get his medications filled. Homa ent has no diarrhea at this time no nausea vomiting's been diagnosed with colitis for many many years is been treated accordingly with multiple regimens of therapy and treatment. Pain is localized primarily the left upper quadrant which is where was before unchanged from baseline. REVIEW OF SYSTEMS: Respiratory: No cough, no dyspnea. Cardiovascular: No chest pain, no palpitations. Gastrointestinal: Abdominal pain Musculoskeletal: No back pain. Remainder of the 14 system rev: Yes Allergies: Coded Allergies: No Known Drug Allergies (Unverified , 12/14/16) Home Meds Active Scripts Promethazine Hcl (PROMETHAZINE HCL) 25 Mg Tablet, 25 MG PO Q4H PRN for NAUSEA/VOMITING, #14 TAB Prov:KIERSTEN OLIVO DO 07/22/18 Prednisone (PREDNISONE) 20 Mg Tablet, 40 MG PO QDAY for reduce, bowel inflammation, #14 Prov:KIERSTEN OLIVO DO 07/22/18 Hydrocodone Bit/Acetaminophen (HYDROCODON-ACETAMINOPHEN 5-325) 1 Each Tablet, 1 EACH PO Q4-6H PRN for PAIN, #12 TAKE ONE TABLET BY MOUTH EVERY 4-6 HOURS NEEDED FOR PAIN Prov:KIERSTEN OLIVO DO 07/22/18 Ondansetron Hcl (ZOFRAN) 4 Mg Tablet, 4 MG PO Q6H PRN for NAUSEA/VOMITING, #10 Prov:KIERSTEN OLIVO DO 07/22/18 Metronidazole (FLAGYL) 500 Mg Tablet, 500 MG PO BID for infection, #14 TAB Prov:KIERSTEN OLIVO DO 07/22/18 Ciprofloxacin Hcl 500 Mg Tab (CIPRO 500 MG TAB) 500 Mg Tablet, 500 MG PO BID for infection, #14 Prov:KIERSTEN OLIVO DO 07/22/18 Tramadol Hcl (TRAMADOL HCL) 50 Mg Tablet, 50 MG PO Q6H PRN for PAIN, #6 TAB 0 Refills Prov:BALJIT ÁLVAREZ MD 03/21/18 Promethazine Hcl (PROMETHAZINE HCL) 25 Mg Tablet, 25 MG PO Q8H for Nausea, #15 TAB 0 Refills Prov:BALJIT ÁLVAREZ MD 03/21/18 Dicyclomine Hcl (DICYCLOMINE HCL) 20 Mg Tablet, 20 MG PO QID, #40 TAB 0 Refills Prov:BALJIT ÁLVAREZ MD 03/21/18 Tramadol Hcl (TRAMADOL HCL) 50 Mg Tablet, 50 MG PO Q6H PRN for PAIN, #6 TAB 0 Refills Prov:SHAYY ROGERS DO 02/17/18 Potassium Chloride (POTASSIUM CHLORIDE) 20 Meq Tab.er.prt, 20 MEQ PO TIDCF, #90 TAB 1 Refill Prov:TRACEY DEL ANGEL MD 05/26/16 Reported Medications Trazodone Hcl (TRAZODONE HCL) 50 Mg Tablet, 150 MG PO QHS for Sleep 01/09/18 Omeprazole (OMEPRAZOLE) 20 Mg Tablet.dr, 20 MG PO QDAY, TAB 03/15/17 Venlafaxine Hcl (EFFEXOR XR) 75 Mg Cap.er.24h, 75 MG PO QHS 05/24/16 Testosterone Cypionate (Testone Cik) 200 Mg/1 Ml Kit, QWK 12/30/15 Aripiprazole (ABILIFY) 5 Mg Tablet, 10 MG PO QHS, TAB 12/30/15 Levothyroxine Sodium (LEVOTHYROXINE SODIUM) 75 Mcg Tablet, 75 MCG PO QDAY, TAB 12/26/15 Modafinil (MODAFINIL) 200 Mg Tablet, 200 MG PO QDAY 12/02/14 Buprenorphine Hcl (BUPRENORPHINE HCL) 8 Mg Tab.subl, 3 TAB SL QDAY 12/02/14 Prazosin Hcl (PRAZOSIN HCL) 1 Mg Capsule, 5 MG PO QHS, CAPSULE 12/02/14 Reviewed Nurses Notes: Yes Old Medical Records Reviewed: Yes Hx Smoking: No (chewing tobacco) Smoking Status: Former Smoker Exposure to Second Hand Smoke?: No Hx Substance Use Disorder: No (RECOVERING PERCOCET) Hx Alcohol Use: No Physical Exam General Appearance: The patient is alert, has no immediate need for airway protection and no current signs of toxicity. [ ] Eyes: Pupils equal and round no injection. Respiratory: Chest is non tender, lungs are clear to auscultation. Cardiac: regular rate and rhythm [ ] Gastrointestinal: Abdomen was mild tenderness to deep palpation left upper quadrant no rebound or guarding masses normal bowel sounds otherwise unremarkable Musculoskeletal: Neck: Neck is supple and non tender. Extremities have full range of motion and are non tender. Skin: No rashes or lesions. [ ] DIFFERENTIAL DIAGNOSIS: After history and physical exam differential diagnosis was considered for pain medication antibiotic refill antibody medications abdominal pain colitis infectious colitis Medical Decision Making ED Course/Re-evaluation ED Course ED course medical decision making a 48-year-old male given in the emergency department today was seen yesterday had a CAT scan and blood work demonstrating infectious colitis was prescribed and buttocks and pain medication he claims he is unable to get his antibiotics filled to this time patient will be given a single dose of antiemetics here he said he can get it filled 1st thing tomorrow we'll give him one pain pill while he is here we'll give him one dose of each of his antibiotic for his here and advised to follow-up filling his prescription and follow-up with primary care accordingly diagnosis colitis. Due the fact his imaging was less than 24 hours and his pain in his physical exam is relatively unchanged see no indication for further imaging if the pain worsens advised him to follow-up with his doctor or return to the emergency room Decision to Disposition Date: Jul 23, 2018 Decision to Disposition Time: 14:55 Depart Departure Impression: Primary Impression: Abdominal pain Condition: Improved Disposition: HOME OR SELF-CARE Referrals: CHRISTOPHER THAPA MD (PCP) 5 Days Patient Instructions: Infectious Colitis (ED) STORM TERRY MD Jul 23, 2018 14:56
[2018-07-23 15:06] VITALS: BP 125/79
== END 2018-07-23 15:07 | disposition home or self-care (01) ==
LOC: ER 14:56
DX: R10.12 Left upper quadrant pain (principal)
CPT/HCPCS: 99283; A9270

== ENCOUNTER → 2018-09-11 | Outpatient (CLI) | payer MEDICARE, OTHER ==
[2017-03-15 11:19] VITALS: BMI 30.0
[2018-09-11 15:02] LABS: PLATELET COUNT, AUTOMATED 149 K/uL (150-450)
== END ==
LOC: LAB 14:25
PROVIDERS: ATTEND Nurse Practitioner Family
DX: K50.80 Crohn's disease of both small and large intestine without complications (principal); K92.1 Melena; K21.9 Gastro-esophageal reflux disease without esophagitis
CPT/HCPCS: 36415; 80074; 82040; 82247; 82310; 82374; 82435; 82565; 82947; 84075; 84132; 84155; 84295; 84450; 84460; 84520; 85025; 86140; 86480

== ENCOUNTER 2018-09-14 01:28 | Day surgery (SDC) | payer MEDICARE, OTHER ==
[2017-03-15 11:19] VITALS: Ht 190.5 cm; Wt 110.2 kg
[~2018-09-14] VITALS: Ht 190.5 cm; Wt 110.2 kg
[2018-09-14] MEDS ORDERED: PROPOFOL EMUL(*) 10MG/ML 20 ML 20 ML ONE ×3 (08:53→14:45)
[2018-09-14] MEDS ORDERED: LIDOCAINE/SOD BICARB 8.4% SYR ID ONE (12:40)
[2018-09-14] MEDS ORDERED: NORMOSOL R SOLN(*) 1000 ML BAG 1,000 ML IV PRN (12:40)
[2018-09-14 13:56] VITALS: BP 111/76
[2018-09-14 14:59] VITALS: BP 105/67
--- NOTE | 2018-09-14 15:15 | NUR ---
Patient supplemental oxygen removed. patient tolerating well. will continue to monitor. patient expresses need to go to the bathroom quickly.
--- NOTE | 2018-09-14 15:30 | NUR ---
Patient up to void, able to void bladder.
[2018-09-14 15:40] VITALS: BP 101/68
[2018-09-14 15:55] VITALS: BP 98/67
== END 2018-09-14 15:55 | disposition home or self-care (01) ==
LOC: OR 01:28
PROVIDERS: ATTEND Internal Medicine Gastroenterology
DX: K64.9 Unspecified hemorrhoids (principal); K57.30 Diverticulosis of large intestine without perforation or abscess without bleeding; K63.3 Ulcer of intestine; K52.9 Noninfective gastroenteritis and colitis, unspecified
CPT/HCPCS: 00813; 43239; 43248; 45380; 88305; 88313; 88342; C1769; J2704